=== PATIENT | female | born 1990 | race Caucasian/White ===

== ENCOUNTER 2017-06-22 13:22 | Inpatient (IN) | payer MEDICAID ==
[2017-06-22] MEDS ORDERED: Sodium Chloride 0.9% 2.5 ML Syringe FLUSH PRN ×2 (13:47→17:54)
[2017-06-22] MEDS ORDERED: Ketorolac 30 MG/ML SDV IVPUSH ONE (13:47)
[2017-06-22] MEDS ORDERED: Sodium Chloride 0.9% 1,000 ML IV ONE ×2 (13:47→17:37)
[2017-06-22] MEDS ORDERED: Ondansetron 4 MG/2 ML SDV IVPUSH ONE (13:47)
[2017-06-22] MEDS ORDERED: Sodium Chloride 0.9% 10 ML Syringe FLUSH PRN ×2 (13:47→17:54)
--- NOTE | 2017-06-22 14:09 | EDM.PDOC ---
ED HPI GENERAL MEDICAL PROBLEM - General Chief Complaint: Abdominal Pain Stated Complaint: ABD PAIN Time Seen by Provider: 06/22/17 13:42 Source of Information: Reports: Patient History Limitations: Reports: No Limitations - History of Present Illness INITIAL COMMENTS - FREE TEXT/NARRATIVE: History of present illness: []Patient developed severe lower abdominal pain after intercourse last night. She woke up today with worsening pain. Denies any fevers, chills, pain with urination, vaginal or urinary bleeding. Pain is worse right than left. Review of systems: As per history of present illness and below otherwise all systems reviewed and negative. Past medical history: As per history of present illness and as reviewed below otherwise noncontributory. Surgical history: As per history of present illness and as reviewed below otherwise noncontributory. Social history: No reported history of drug or alcohol abuse. Family history: As per history of present illness and as reviewed below otherwise noncontributory. Physical exam: General: Well developed, well nourished in NAD HEENT: Atraumatic, normocephalic, pupils reactive, negative for conjunctival pallor or scleral icterus, mucous membranes moist, throat clear, neck supple, nontender, trachea midline. Lungs: Clear to auscultation, breath sounds equal bilaterally, chest nontender. Heart: S1S2, regular, negative for clicks, rubs, or JVD. Abdomen: Soft, NABS, nondistended, severe tenderness throughout the whole abdomen with voluntary guarding, no rebound. Negative for masses or hepatosplenomegaly. Negative for costovertebral tenderness. Pelvis: Stable nontender. Genitourinary: Deferred. Rectal: Deferred. Extremities: Atraumatic, negative for cords or calf pain. Neurovascular unremarkable. Neuro: Awake, alert, oriented. Cranial nerves II through XII unremarkable. Cerebellum unremarkable. Motor and sensory unremarkable throughout. Exam nonfocal. Diagnostics: []CBC shows mild elevated white count and anemia, is negative. Pelvic ultrasound was ordered showing a complex mass, with free fluid in the pelvis. CT was then ordered showing a large cystic mass behind the uterus with blood in the paracolic gutters possibly representing a ruptured ovarian cyst. Therapeutics: []IV hydrated, pain control Impression: []Ruptured ovarian cyst with free fluid. was consulted and he evaluated patient in the ED. He preferred to admit this patient to the hospitalist with him on consult. Patient did have one hypotensive episode while in the ED to a systolic pressure in 70s without syncope. Plan: []Admit for serial H&H's to medicine with COMPUTER AIDED DRAFTER on consult Definitive disposition and diagnosis as appropriate pending reevaluation and review of above. Abdominal Pain Score (Numeric/FACES): 10 - Related Data Allergies Allergy/AdvReac Type Severity Reaction Status Date / Time cefaclor [From Ceclor] Allergy Hives Verified 06/22/17 13:33 hydromorphone [From Dilaudid] Allergy Swelling Verified 06/22/17 13:33 Penicillins Allergy Anaphylactic Verified 06/22/17 13:33 Shock sumatriptan [From Imitrex] Allergy Hives Verified 06/22/17 13:33 verapamil Allergy Hives Verified 06/22/17 13:33 Home Meds: Home Meds Omeprazole 20 mg PO DAILY 06/22/17 [History] Sertraline [Zoloft] 150 mg PO BEDTIME 06/22/17 [History] Topiramate [Topamax] 50 mg PO BID 06/22/17 [History] busPIRone [Buspar] 5 mg PO TID 06/22/17 [History] traZODone HCl [Trazodone HCl] 300 mg PO BEDTIME PRN 06/22/17 [History] Past Medical History 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: Other (See Below) Other OB/BYN History: Ovarian cysts with rupture Psychiatric History: Reports: Anxiety, Depression, Panic Attack, Other (See Below) Other Psychiatric History: Insomnia Hematologic History: Reports: Anemia Other Hematologic History: during Social & Family History - Family History Family Medical History: Noncontributory - Tobacco Use Smoking Status *Q: Never Smoker Second Hand Smoke Exposure: No - Caffeine Use Caffeine Use: Reports: Soda - Recreational Drug Use Recreational Drug Use: No ED ROS GENERAL - Review of Systems Review Of Systems: See Below (See history of present illness) ED EXAM, GI/ABD - Physical Exam Exam: See Below (See history of present illness) Course - Vital Signs Last Recorded V/S: Last Vital Signs Temp 36.9 C 06/23/17 04:00 Pulse 94 06/23/17 04:00 Resp 16 06/23/17 04:00 BP 92/59 L 06/23/17 04:00 Pulse Ox 98 06/23/17 04:00 - Orders/Labs/Meds Orders: Active Orders 24 hr Category Date Time Status Sodium Chloride 0.9% [Saline Flush] Med 06/22/17 13:47 Active 10 ml FLUSH ASDIRECTED PRN Sodium Chloride 0.9% [Saline Flush] Med 06/22/17 13:47 Active 2.5 ml FLUSH ASDIRECTED PRN Saline Lock Insert [OM.PC] Stat Oth 06/22/17 13:47 Ordered Medication Orders Sodium Chloride (Normal Saline) 1,000 mls @ 125 mls/hr IV ASDIRECTED SELINA Last Admin: 06/23/17 02:44 Dose: 125 mls/hr Infusion: 06/23/17 02:44 Dose: 125 mls/hr Admin: 06/22/17 18:51 Dose: 125 mls/hr Morphine Sulfate (Morphine) 2 mg IVPUSH Q2H PRN PRN Reason: Pain (severe 7-10) Stop: 06/23/17 18:19 Last Admin: 06/23/17 06:50 Dose: 2 mg Admin: 06/23/17 04:17 Dose: 2 mg Admin: 06/23/17 01:22 Dose: 2 mg Admin: 06/22/17 23:11 Dose: 2 mg Admin: 06/22/17 21:00 Dose: 2 mg Admin: 06/22/17 18:49 Dose: 2 mg Ondansetron HCl (Zofran) 4 mg IVPUSH Q4H PRN PRN Reason: Nausea/Vomiting Last Admin: 06/23/17 04:15 Dose: 4 mg Admin: 06/22/17 21:53 Dose: 4 mg Sodium Chloride (Saline Flush) 10 ml FLUSH ASDIRECTED PRN PRN Reason: Keep Vein Open Sodium Chloride (Saline Flush) 2.5 ml FLUSH ASDIRECTED PRN PRN Reason: Keep Vein Open Sodium Chloride (Saline Flush) 10 ml FLUSH ASDIRECTED PRN PRN Reason: Keep Vein Open Sodium Chloride (Saline Flush) 2.5 ml FLUSH ASDIRECTED PRN PRN Reason: Keep Vein Open Labs: Laboratory Tests 06/22/17 06/22/17 06/22/17 Range/Units 14:00 14:00 14:00 WBC 12.80 H (4.0-11.0) K/uL RBC 3.88 L (4.30-5.90) M/uL Hgb 10.5 L (12.0-16.0) g/dL Hct 32.8 L (36.0-46.0) % MCV 84.5 (80.0-98.0) fL MCH 27.1 (27.0-32.0) pg MCHC 32.0 (31.0-37.0) g/dL RDW Std Deviation 40.3 (28.0-62.0) fl RDW Coeff of Jyotsna 13 (11.0-15.0) % Plt Count 283 (150-400) K/uL MPV 11.00 (7.40-12.00) fL Neut % (Auto) 73.2 (48.0-80.0) % Lymph % (Auto) 19.5 (16.0-40.0) % Crane % (Auto) 6.0 (0.0-15.0) % Eos % (Auto) 1.1 (0.0-7.0) % Baso % (Auto) 0.2 (0.0-1.5) % Neut # (Auto) 9.4 H (1.4-5.7) K/uL Lymph # (Auto) 2.5 H (0.6-2.4) K/uL Crane # (Auto) 0.8 (0.0-0.8) K/uL Eos # (Auto) 0.1 (0.0-0.7) K/uL Baso # (Auto) 0.0 (0.0-0.1) K/uL Nucleated RBC % 0.0 /100WBC Nucleated RBCs # 0 K/uL Smear Path Review INR 0.92 (0.86-1.11) APTT (18.6-31.3) SEC Sodium 136 (136-146) mmol/L Potassium 3.8 (3.5-5.1) mmol/L Chloride 108 (98-110) mmol/L Carbon Dioxide 21 (21-31) mmol/L BUN 13 (6.0-23.0) mg/dL Creatinine 0.8 (0.6-1.5) mg/dL Est Cr Clr Drug Dosing 82.80 mL/min Estimated GFR (MDRD) > 60.0 ml/min Glucose 96 (60-110) mg/dL Calcium 8.6 L (8.8-10.8) mg/dL Total Bilirubin 0.3 (0.1-1.5) mg/dL AST 11 (5-40) IU/L ALT 14 (8-54) IU/L Alkaline Phosphatase 84 (40-150) Total Protein 6.8 (6.0-8.0) g/dL Albumin 3.7 (3.5-5.0) g/dL Globulin 3.1 (2.0-3.5) g/dL Albumin/Globulin Ratio 1.2 L (1.3-2.8) Urine Color Urine Appearance Urine pH (5.0-8.0) Ur Specific [place] (1.001-1.035) Urine Protein (NEGATIVE) mg/dL Urine Glucose (UA) (NEGATIVE) mg/dL Urine Ketones (NEGATIVE) mg/dL Urine Occult Blood (NEGATIVE) Urine Nitrite (NEGATIVE) Urine Bilirubin (NEGATIVE) Urine Urobilinogen (<2.0) EU/dL Ur Leukocyte Esterase (NEGATIVE) Urine RBC (0-2/HPF) Urine WBC (0-5/HPF) Ur Epithelial Cells (NONE-FEW) Amorphous Sediment (NEGATIVE) Urine Bacteria (NEGATIVE) Urine HCG, Qual (NEGATIVE) 06/22/17 06/22/17 06/22/17 Range/Units 14:01 14:01 16:00 WBC (4.0-11.0) K/uL RBC (4.30-5.90) M/uL Hgb (12.0-16.0) g/dL Hct (36.0-46.0) % MCV (80.0-98.0) fL MCH (27.0-32.0) pg MCHC (31.0-37.0) g/dL RDW Std Deviation (28.0-62.0) fl RDW Coeff of Jyotsna (11.0-15.0) % Plt Count (150-400) K/uL MPV (7.40-12.00) fL Neut % (Auto) (48.0-80.0) % Lymph % (Auto) (16.0-40.0) % Crane % (Auto) (0.0-15.0) % Eos % (Auto) (0.0-7.0) % Baso % (Auto) (0.0-1.5) % Neut # (Auto) (1.4-5.7) K/uL Lymph # (Auto) (0.6-2.4) K/uL Crane # (Auto) (0.0-0.8) K/uL Eos # (Auto) (0.0-0.7) K/uL Baso # (Auto) (0.0-0.1) K/uL Nucleated RBC % /100WBC Nucleated RBCs # K/uL Smear Path Review SENT TO PATHOLOGY INR (0.86-1.11) APTT (18.6-31.3) SEC Sodium (136-146) mmol/L Potassium (3.5-5.1) mmol/L Chloride (98-110) mmol/L Carbon Dioxide (21-31) mmol/L BUN (6.0-23.0) mg/dL Creatinine (0.6-1.5) mg/dL Est Cr Clr Drug Dosing mL/min Estimated GFR (MDRD) ml/min Glucose (60-110) mg/dL Calcium (8.8-10.8) mg/dL Total Bilirubin (0.1-1.5) mg/dL AST (5-40) IU/L ALT (8-54) IU/L Alkaline Phosphatase (40-150) Total Protein (6.0-8.0) g/dL Albumin (3.5-5.0) g/dL Globulin (2.0-3.5) g/dL Albumin/Globulin Ratio (1.3-2.8) Urine Color YELLOW Urine Appearance CLEAR Urine pH 6.5 (5.0-8.0) Ur Specific [place] 1.025 (1.001-1.035) Urine Protein TRACE (NEGATIVE) mg/dL Urine Glucose (UA) NEGATIVE (NEGATIVE) mg/dL Urine Ketones NEGATIVE (NEGATIVE) mg/dL Urine Occult Blood NEGATIVE (NEGATIVE) Urine Nitrite NEGATIVE (NEGATIVE) Urine Bilirubin NEGATIVE (NEGATIVE) Urine Urobilinogen 0.2 (<2.0) EU/dL Ur Leukocyte Esterase NEGATIVE (NEGATIVE) Urine RBC 0-1 (0-2/HPF) Urine WBC 0-2 (0-5/HPF) Ur Epithelial Cells MODERATE (NONE-FEW) Amorphous Sediment FEW (NEGATIVE) Urine Bacteria FEW (NEGATIVE) Urine HCG, Qual NEGATIVE (NEGATIVE) 06/22/17 Range/Units 16:00 WBC (4.0-11.0) K/uL RBC (4.30-5.90) M/uL Hgb (12.0-16.0) g/dL Hct (36.0-46.0) % MCV (80.0-98.0) fL MCH (27.0-32.0) pg MCHC (31.0-37.0) g/dL RDW Std Deviation (28.0-62.0) fl RDW Coeff of Jy[place]na (11.0-15.0) % Plt Count (150-400) K/uL MPV (7.40-12.00) fL Neut % (Auto) (48.0-80.0) % Lymph % (Auto) (16.0-40.0) % Crane % (Auto) (0.0-15.0) % Eos % (Auto) (0.0-7.0) % Baso % (Auto) (0.0-1.5) % Neut # (Auto) (1.4-5.7) K/uL Lymph # (Auto) (0.6-2.4) K/uL Crane # (Auto) (0.0-0.8) K/uL Eos # (Auto) (0.0-0.7) K/uL Baso # (Auto) (0.0-0.1) K/uL Nucleated RBC % /100WBC Nucleated RBCs # K/uL Smear Path Review INR (0.86-1.11) APTT 25.2 (18.6-31.3) SEC Sodium (136-146) mmol/L Potassium (3.5-5.1) mmol/L Chloride (98-110) mmol/L Carbon Dioxide (21-31) mmol/L BUN (6.0-23.0) mg/dL Creatinine (0.6-1.5) mg/dL Est Cr Clr Drug Dosing mL/min Estimated GFR (MDRD) ml/min Glucose (60-110) mg/dL Calcium (8.8-10.8) mg/dL Total Bilirubin (0.1-1.5) mg/dL AST (5-40) IU/L ALT (8-54) IU/L Alkaline Phosphatase (40-150) Total Protein (6.0-8.0) g/dL Albumin (3.5-5.0) g/dL Globulin (2.0-3.5) g/dL Albumin/Globulin Ratio (1.3-2.8) Urine Color Urine Appearance Urine pH (5.0-8.0) Ur Specific [place] (1.001-1.035) Urine Protein (NEGATIVE) mg/dL Urine Glucose (UA) (NEGATIVE) mg/dL Urine Ketones (NEGATIVE) mg/dL Urine Occult Blood (NEGATIVE) Urine Nitrite (NEGATIVE) Urine Bilirubin (NEGATIVE) Urine Urobilinogen (<2.0) EU/dL Ur Leukocyte Esterase (NEGATIVE) Urine RBC (0-2/HPF) Urine WBC (0-5/HPF) Ur Epithelial Cells (NONE-FEW) Amorphous Sediment (NEGATIVE) Urine Bacteria (NEGATIVE) Urine HCG, Qual (NEGATIVE) Meds: Medications Generic Name Dose Route Start Last Admin Trade Name Freq PRN Reason Stop Dose Admin Sodium Chloride 1,000 mls @ 125 mls/hr 06/22/17 18:00 06/23/17 02:44 Normal Saline IV 125 mls/hr ASDIRECTED SELINA Administration Morphine Sulfate 2 mg 06/22/17 17:54 06/23/17 06:50 Morphine IVPUSH 06/23/17 18:19 2 mg Q2H PRN Administration Pain (severe 7-10) Ondansetron HCl 4 mg 06/22/17 17:54 06/23/17 04:15 Zofran IVPUSH 4 mg Q4H PRN Administration Nausea/Vomiting Sodium Chloride 10 ml 06/22/17 13:47 Saline Flush FLUSH ASDIRECTED PRN Keep Vein Open Sodium Chloride 2.5 ml 06/22/17 13:47 Saline Flush FLUSH ASDIRECTED PRN Keep Vein Open Sodium Chloride 10 ml 06/22/17 17:54 Saline Flush FLUSH ASDIRECTED PRN Keep Vein Open Sodium Chloride 2.5 ml 06/22/17 17:54 Saline Flush FLUSH ASDIRECTED PRN Keep Vein Open Discontinued Medications Generic Name Dose Route Start Last Admin Trade Name Freq PRN Reason Stop Dose Admin Sodium Chloride 1,000 mls @ 999 mls/hr 06/22/17 13:47 06/22/17 14:05 Normal Saline IV 06/22/17 14:47 999 mls/hr .Bolus ONE Administration Sodium Chloride 1,000 mls @ 999 mls/hr 06/22/17 17:37 06/22/17 17:44 Normal Saline IV 06/22/17 18:37 999 mls/hr .Bolus ONE Administration Iopamidol 96 ml 06/22/17 15:55 06/22/17 16:02 Isovue Multipack-370 (76%) IVPUSH 06/22/17 15:56 96 ml ONETIME STA Administration Ketorolac Tromethamine 30 mg 06/22/17 13:47 06/22/17 14:02 Toradol IVPUSH 06/22/17 13:48 30 mg ONETIME ONE Administration Morphine Sulfate 4 mg 06/22/17 16:12 06/22/17 16:21 Morphine IVPUSH 06/22/17 16:13 4 mg ONETIME ONE Administration Ondansetron HCl 4 mg 06/22/17 13:47 06/22/17 14:02 Zofran IVPUSH 06/22/17 13:48 4 mg ONETIME ONE Administration Departure - Departure Time of Disposition: 07:15 Disposition: Home, Self-Care 01 Condition: Good Clinical Impression: Iron deficiency anemia Qualifiers: Iron deficiency anemia type: chronic blood loss Qualified Code(s): D50.0 - Iron deficiency anemia secondary to blood loss (chronic) - Discharge Information - My Orders Last 24 Hours: My Active Orders 06/22/17 13:47 Sodium Chloride 0.9% [Saline Flush] 10 ml FLUSH ASDIRECTED PRN Sodium Chloride 0.9% [Saline Flush] 2.5 ml FLUSH ASDIRECTED PRN Saline Lock Insert [OM.PC] Stat - Assessment/Plan Last 24 Hours: My Active Orders 06/22/17 13:47 Sodium Chloride 0.9% [Saline Flush] 10 ml FLUSH ASDIRECTED PRN Sodium Chloride 0.9% [Saline Flush] 2.5 ml FLUSH ASDIRECTED PRN Saline Lock Insert [OM.PC] Stat
[2017-06-22 14:38] LABS: CHLORIDE,CL 108 mmol/L (98-110); SODIUM,NA 136 mmol/L (136-146)
--- NOTE | 2017-06-22 15:43 | US ---
Pelvic non-OB sonogram/clinical history wire and endometrial ablation. Sudden onset x 12 h of lower abdominal pelvic pain after intercourse Multiple longitudinal and transverse sections demonstrate that the endometrial stripe is not thicken ed within the uterus. There is a complex right adnexal mass with cystic and solid components. Since room hCG determination is known to be normal this is not likely an ectopic gestation could represent a ruptured ovarian cyst with perirenal ovarian hematoma Impression: Complex right adnexal mass, sudden onset suggesting the likelihood this could be a hemor rhagic cyst
[2017-06-22] MEDS ORDERED: Iopamidol 755 MG/ML 500 ML Multipack Bottle IVPUSH STA (15:55)
[2017-06-22] MEDS ORDERED: Morphine 2 MG/ML Syringe IVPUSH ONE (16:12)
--- NOTE | 2017-06-22 16:15 | CT ---
CT scan of the abdomen and pelvis/clinical history sudden onset of pelvic pain after intercourse Multiple computed tomographic sections of the abdomen and pelvis were acquired with intravenous Isov ue 370/1 100 mL. Findings: The lung bases are clear. Liver spleen and pancreas and gallbladder are normal. There is a small amount of free intraperitoneal fluid dissecting caudad in the colic gutters bilaterally. The graft there is a cystic mass in the pelvis measuring approximately 5 cm behind the uterus surrounded by increased density material consistent with a large hematoma. Given that the patient's hCG determ ination is normal this is not likely a ruptured ectopic but may be a ruptured ovarian cyst area the uterus is of normal size and character. Impression: Cystic mass with large pelvic hematoma and free fluid dissecting in the paracolic gutter s. Given the patient is not by hCG determination, this likely represents a ruptured ovarian cyst
--- NOTE | 2017-06-22 18:33 | PCM.HP ---
H&P History of Present Illness - General Date of Service: 06/22/17 Admit Problem/Dx: Admission Diagnosis/Problem Admission Diagnosis/Problem Ruptured ovarian cyst - History of Present Illness Initial Comments - Free Text/Narative: 26-year-old female who is complaining of acute pelvic pain which started last night. Patient states that she was having intercourse and after about 15-20 minutes after intercourse she develops severe abdominal pain. She denies any blood from the vaginal canal. She states that along with severe abdominal pain she developed nausea and vomiting. She states that she vomited between 4-5 times overnight with the pain progressively getting worse being a 8 out of 10 in nature. She denies any fevers or chills during this episode. She states that she had shortness of breath secondary to the pain however she denies any heart palpitations or syncopal episodes. She does state that she did have a headache which she believes is migraine in nature as she does have a history of migraine headaches. She states she has significant past medical history of multiple gynecological problems including possible endometriosis, multiple miscarriages, possible fibroids, tubal ligation. He states this is the first set that she's had acute pelvic pain such as this. In the ER she was found to be hemodynamically stable with a mildly elevated WBC count, mild anemia 10.5, negative beta hCG for , a pelvic ultrasound which showed a complex mass with free fluid in the pelvis and a subsequent CT of the pelvis which showed a large cystic mass of the uterus with blood in the pericolic gutters which likely represented a ruptured ovarian cyst. Onset of Symptoms: Reports: Sudden Abdominal Pain Score (Numeric/FACES): 10 - Related Data Allergies/Adverse Reactions: Allergies Allergy/AdvReac Type Severity Reaction Status Date / Time cefaclor [From Ceclor] Allergy Hives Verified 06/22/17 13:33 hydromorphone [From Dilaudid] Allergy Swelling Verified 06/22/17 13:33 Penicillins Allergy Anaphylactic Verified 06/22/17 13:33 Shock sumatriptan [From Imitrex] Allergy Hives Verified 06/22/17 13:33 verapamil Allergy Hives Verified 06/22/17 13:33 Home Medications: Home Meds Omeprazole 20 mg PO DAILY 06/22/17 [History] Sertraline [Zoloft] 150 mg PO BEDTIME 06/22/17 [History] Topiramate [Topamax] 50 mg PO BID 06/22/17 [History] busPIRone [Buspar] 5 mg PO TID 06/22/17 [History] traZODone HCl [Trazodone HCl] 300 mg PO BEDTIME PRN 06/22/17 [History] Past Medical History STUDENT LIFE ADVISOR History: Reports: Endometriosis, Other (See Below) (Multiple miscarriages , tubal ligation) Other OB/BYN History: Ovarian cysts with rupture Psychiatric History: Reports: Anxiety, Depression, Panic Attack, Other (See Below) Other Psychiatric History: Insomnia Hematologic History: Reports: Anemia Other Hematologic History: during Social & Family History - Family History Family Medical History: Noncontributory - Tobacco Use Smoking Status *Q: Never Smoker Second Hand Smoke Exposure: No - Caffeine Use Caffeine Use: Reports: Soda - Recreational Drug Use Recreational Drug Use: No H&P Review of Systems - Review of Systems: Review Of Systems: ROS reveals no pertinent complaints other than HPI. Exam - Exam Exam: See Below - Vital Signs Vital Signs: Last Vital Signs Temp 36.4 C 06/22/17 17:35 Pulse 82 06/22/17 17:47 Resp 16 06/22/17 17:47 BP 100/53 L 06/22/17 17:47 Pulse Ox 98 06/22/17 17:47 Weight: 94.43 kg - Exam General: Alert HEENT: Conjunctiva Clear Neck: Supple, Trachea Midline Lungs: Clear to Auscultation, Normal Respiratory Effort Cardiovascular: Regular Rate, Regular Rhythm GI/Abdominal Exam: Guarding, Rigid, Rebound, Tender - Patient Data Result Diagrams: 06/22/17 14:00 06/22/17 14:00 *Q Meaningful Use (ADM) - VTE *Q VTE Criteria *Q: - Stroke *Q Stroke Criteria *Q: - AMI *Q AMI Criteria *Q: - Problem List (1) Ruptured ovarian cyst SNOMED Code(s): 03349557 ICD Code: N83.209 - UNSPECIFIED OVARIAN CYST, UNSPECIFIED SIDE Status: Acute Current Visit: Yes Problem List Initiated/Reviewed/Updated: Yes Orders Last 24hrs: Active Orders 24 hr Category Date Time Status Patient Status [ADT] Routine ADT 06/22/17 18:17 Ordered Antiembolic Devices [RC] PER UNIT ROUTINE Care 06/22/17 18:19 Ordered Notify Provider Consults [RC] ASDIRECTED Care 06/22/17 18:20 Ordered Oxygen Therapy [RC] PRN Care 06/22/17 18:17 Ordered Up With Assistance [RC] ASDIRECTED Care 06/22/17 17:54 Ordered VTE/DVT Education [RC] PER UNIT ROUTINE Care 06/22/17 18:17 Ordered Vital Signs [RC] Q4H Care 06/22/17 18:17 Ordered Consult to Physician [CONS] Routine Cons 06/22/17 17:54 Ordered Regular Diet [DIET] Diet 06/22/17 Breakfast Ordered BASIC METABOLIC PANEL,BMP [CHEM] AM Lab 06/23/17 05:11 Ordered CBC WITH AUTO DIFF [HEME] AM Lab 06/23/17 05:11 Ordered HEMOGLOBIN/HEMATOCRIT,HH [HEME] Q4H Lab 06/22/17 18:27 Ordered HEMOGLOBIN/HEMATOCRIT,HH [HEME] Q4H Lab 06/22/17 22:27 Ordered HEMOGLOBIN/HEMATOCRIT,HH [HEME] Q4H Lab 06/23/17 02:27 Ordered PERIPH BLOOD SMEAR PATHOLOGIST [HEME] Stat Lab 06/22/17 17:54 Ordered PTT,PARTIAL THROMBOPLSTIN TIME [COAG] Stat Lab 06/22/17 17:54 Ordered Morphine Med 06/22/17 17:54 Ordered 2 mg IVPUSH Q2H PRN Ondansetron [Zofran] Med 06/22/17 17:54 Ordered 4 mg IVPUSH Q4H PRN Sodium Chloride 0.9% @ 125 MLS/HR (1000ml) Med 06/22/17 18:00 Ordered Sodium Chloride 0.9% [Normal Saline] 1,000 ml IV ASDIRECTED Sodium Chloride 0.9% [Saline Flush] Med 06/22/17 17:54 Ordered 10 ml FLUSH ASDIRECTED PRN Sodium Chloride 0.9% [Saline Flush] Med 06/22/17 17:54 Ordered 2.5 ml FLUSH ASDIRECTED PRN Peripheral IV Insertion Adult [OM.PC] Routine Oth 06/22/17 17:54 Ordered Saline Lock Insert [OM.PC] Routine Oth 06/22/17 17:54 Ordered Sequential Compression Device [OM.PC] Per Unit Routine Oth 06/22/17 18:18 Ordered Resuscitation Status Routine Resus Stat 08/14/17 17:54 Ordered Medication Orders Sodium Chloride (Normal Saline) 1,000 mls @ 999 mls/hr IV .Bolus ONE Stop: 06/22/17 18:37 Last Admin: 06/22/17 17:44 Dose: 999 mls/hr Sodium Chloride (Normal Saline) 1,000 mls @ 125 mls/hr IV ASDIRECTED SELINA Morphine Sulfate (Morphine) 2 mg IVPUSH Q2H PRN PRN Reason: Pain (severe 7-10) Stop: 06/23/17 18:19 Ondansetron HCl (Zofran) 4 mg IVPUSH Q4H PRN PRN Reason: Nausea/Vomiting Sodium Chloride (Saline Flush) 10 ml FLUSH ASDIRECTED PRN PRN Reason: Keep Vein Open Sodium Chloride (Saline Flush) 2.5 ml FLUSH ASDIRECTED PRN PRN Reason: Keep Vein Open Sodium Chloride (Saline Flush) 10 ml FLUSH ASDIRECTED PRN PRN Reason: Keep Vein Open Sodium Chloride (Saline Flush) 2.5 ml FLUSH ASDIRECTED PRN PRN Reason: Keep Vein Open Assessment/Plan Comment:: Assessment and plan: #1. Acute severe abdominal/pelvic pain secondary to intercourse. Patient has a ruptured ovarian cyst based on CT imaging -Consult STUDENT LIFE ADVISOR -Trending H&H every 4 hours - Patient is allowed to eat, normal saline at 125 mL/h -If patient's hemoglobin drops or she becomes hemodynamically unstable than likely intervention will be blood transfusion -patient has been typed and screened -Coagulopathy panel pending -CBC, BMP in the a.m. -Patient on morphine when necessary every 2 hours for pain control, as well as Zofran every 4 hours for controlling of nausea and vomiting -Leukocytosis we'll continue to watch Patient admitted inpatient status greater than 2 midnights
[2017-06-22] MEDS: Morphine 10 MG/ML Syringe IVPUSH PRN ×3 (18:49→23:11)
[2017-06-22] MEDS: Sodium Chloride 0.9% 1,000 ML IV SCH (18:51)
[2017-06-22] MEDS: Ondansetron 4 MG/2 ML SDV IVPUSH PRN (21:53)
[2017-06-23] MEDS: Morphine 10 MG/ML Syringe IVPUSH PRN ×3 (01:22→06:50)
[2017-06-23] MEDS: Sodium Chloride 0.9% 1,000 ML IV SCH (02:44)
[2017-06-23] MEDS: Ondansetron 4 MG/2 ML SDV IVPUSH PRN ×4 (04:15→22:32)
[2017-06-23 07:31] LABS: CHLORIDE,CL 113 mmol/L (98-110); SODIUM,NA 138 mmol/L (136-146)
[2017-06-23] MEDS ORDERED: Morphine 2 MG/ML Syringe IVPUSH PRN (08:02)
--- NOTE | 2017-06-23 09:01 | PCM.PN ---
- General Info Date of Service: 06/23/17 Functional Status: Reports: Pain Controlled - Review of Systems General: Reports: No Symptoms HEENT: Reports: No Symptoms Pulmonary: Reports: No Symptoms Cardiovascular: Reports: No Symptoms Gastrointestinal: Reports: No Symptoms Genitourinary: Reports: No Symptoms Musculoskeletal: Reports: No Symptoms Skin: Reports: No Symptoms Neurological: Reports: No Symptoms Psychiatric: Reports: No Symptoms - Patient Data Vitals - Most Recent: Last Vital Signs Temp 36.4 C 06/23/17 08:00 Pulse 103 H 06/23/17 08:00 Resp 22 H 06/23/17 08:00 BP 99/62 06/23/17 08:00 Pulse Ox 96 06/23/17 08:00 Weight - Most Recent: 94.43 kg I&O - Last 24 Hours: Intake & Output 06/22/17 06/23/17 06/23/17 22:59 06:59 14:59 Intake Total 1700 Output Total 400 Balance 1300 Lab Results Last 24 Hours: Laboratory Results - last 24 hr 06/22/17 06/22/17 06/22/17 Range/Units 18:21 18:24 22:35 WBC (4.0-11.0) K/uL RBC (4.30-5.90) M/uL Hgb 9.2 L 9.5 L (12.0-16.0) g/dL Hct 28.4 L 28.5 L (36.0-46.0) % MCV (80.0-98.0) fL MCH (27.0-32.0) pg MCHC (31.0-37.0) g/dL RDW Std Deviation (28.0-62.0) fl RDW Coeff of [place] (11.0-15.0) % Plt Count (150-400) K/uL MPV (7.40-12.00) fL Neut % (Auto) (48.0-80.0) % Lymph % (Auto) (16.0-40.0) % [place] % (Auto) (0.0-15.0) % Eos % (Auto) (0.0-7.0) % Baso % (Auto) (0.0-1.5) % Neut # (Auto) (1.4-5.7) K/uL Lymph # (Auto) (0.6-2.4) K/uL [place] # (Auto) (0.0-0.8) K/uL Eos # (Auto) (0.0-0.7) K/uL Baso # (Auto) (0.0-0.1) K/uL Nucleated RBC % /100WBC Nucleated RBCs # K/uL Sodium (136-146) mmol/L Potassium (3.5-5.1) mmol/L Chloride (98-110) mmol/L Carbon Dioxide (21-31) mmol/L BUN (6.0-23.0) mg/dL Creatinine (0.6-1.5) mg/dL Est Cr Clr Drug Dosing mL/min Estimated GFR (MDRD) ml/min Glucose (60-110) mg/dL Calcium (8.8-10.8) mg/dL Blood Type B POSITIVE Antibody Screen NEGATIVE 06/23/17 06/23/17 06/23/17 Range/Units 02:35 06:38 06:38 WBC 8.82 (4.0-11.0) K/uL RBC 3.27 L (4.30-5.90) M/uL Hgb 9.3 L 8.9 L (12.0-16.0) g/dL Hct 28.7 L 28.1 L (36.0-46.0) % MCV 85.9 (80.0-98.0) fL MCH 27.2 (27.0-32.0) pg MCHC 31.7 (31.0-37.0) g/dL RDW Std Deviation 41.9 (28.0-62.0) fl RDW Coeff of [place] 13 (11.0-15.0) % Plt Count 212 (150-400) K/uL MPV 10.60 (7.40-12.00) fL Neut % (Auto) 64.3 (48.0-80.0) % Lymph % (Auto) 27.3 (16.0-40.0) % [place] % (Auto) 6.3 (0.0-15.0) % Eos % (Auto) 1.9 (0.0-7.0) % Baso % (Auto) 0.2 (0.0-1.5) % Neut # (Auto) 5.7 (1.4-5.7) K/uL Lymph # (Auto) 2.4 (0.6-2.4) K/uL [place] # (Auto) 0.6 (0.0-0.8) K/uL Eos # (Auto) 0.2 (0.0-0.7) K/uL Baso # (Auto) 0.0 (0.0-0.1) K/uL Nucleated RBC % 0.0 /100WBC Nucleated RBCs # 0 K/uL Sodium 138 (136-146) mmol/L Potassium 3.6 (3.5-5.1) mmol/L Chloride 113 H (98-110) mmol/L Carbon Dioxide 21 (21-31) mmol/L BUN 7 (6.0-23.0) mg/dL Creatinine 0.6 (0.6-1.5) mg/dL Est Cr Clr Drug Dosing 110.40 mL/min Estimated GFR (MDRD) > 60.0 ml/min Glucose 95 (60-110) mg/dL Calcium 7.7 L (8.8-10.8) mg/dL Blood Type Antibody Screen Med Orders - Current: Current Medications Morphine Sulfate (Morphine) 2 mg IVPUSH Q2H PRN PRN Reason: Pain (severe 7-10) Stop: 06/23/17 18:19 Ondansetron HCl (Zofran) 4 mg IVPUSH Q4H PRN PRN Reason: Nausea/Vomiting Last Admin: 06/23/17 04:15 Dose: 4 mg Sodium Chloride (Saline Flush) 10 ml FLUSH ASDIRECTED PRN PRN Reason: Keep Vein Open Sodium Chloride (Saline Flush) 2.5 ml FLUSH ASDIRECTED PRN PRN Reason: Keep Vein Open Sodium Chloride (Saline Flush) 10 ml FLUSH ASDIRECTED PRN PRN Reason: Keep Vein Open Sodium Chloride (Saline Flush) 2.5 ml FLUSH ASDIRECTED PRN PRN Reason: Keep Vein Open Discontinued Medications Sodium Chloride (Normal Saline) 1,000 mls @ 999 mls/hr IV .Bolus ONE Stop: 06/22/17 14:47 Last Admin: 06/22/17 14:05 Dose: 999 mls/hr Sodium Chloride (Normal Saline) 1,000 mls @ 999 mls/hr IV .Bolus ONE Stop: 06/22/17 18:37 Last Admin: 06/22/17 17:44 Dose: 999 mls/hr Sodium Chloride (Normal Saline) 1,000 mls @ 125 mls/hr IV ASDIRECTED SELINA Last Admin: 06/23/17 02:44 Dose: 125 mls/hr Iopamidol (Isovue Multipack-370 (76%)) 96 ml IVPUSH ONETIME STA Stop: 06/22/17 15:56 Last Admin: 06/22/17 16:02 Dose: 96 ml Ketorolac Tromethamine (Toradol) 30 mg IVPUSH ONETIME ONE Stop: 06/22/17 13:48 Last Admin: 06/22/17 14:02 Dose: 30 mg Morphine Sulfate (Morphine) 4 mg IVPUSH ONETIME ONE Stop: 06/22/17 16:13 Last Admin: 06/22/17 16:21 Dose: 4 mg Morphine Sulfate (Morphine) 2 mg IVPUSH Q2H PRN PRN Reason: Pain (severe 7-10) Stop: 06/23/17 18:19 Last Admin: 06/23/17 06:50 Dose: 2 mg Ondansetron HCl (Zofran) 4 mg IVPUSH ONETIME ONE Stop: 06/22/17 13:48 Last Admin: 06/22/17 14:02 Dose: 4 mg - Exam General: Alert, Oriented HEENT: Pupils Equal, Pupils Reactive, EOMI, Mucous Membr. Moist/[place] Neck: Supple Lungs: Clear to Auscultation, Normal Respiratory Effort Cardiovascular: Regular Rate, Regular Rhythm GI/Abdominal Exam: Normal Bowel Sounds, Soft, Non-Tender, No Organomegaly, No Distention, No Abnormal Bruit, No Mass, Pelvis Stable (Female) Exam: Normal External Exam, Normal Speculum Exam, Normal Bimanual Exam Back Exam: Normal Inspection, Full Range of Motion Extremities: Normal Inspection, Normal Range of Motion, Non-Tender, No Pedal Edema, Normal Capillary Refill Skin: Warm, Dry, Intact Wound/Incisions: Healing Well Neurological: No New Focal Deficit Psy/Mental Status: Alert, Normal Affect, Normal Mood - Problem List Review Problem List Initiated/Reviewed/Updated: Yes - Assessment Assessment:: Pelvic hematoma presumably due to rupture ovarian cyst currently the patient vital signs stable hair H&H is stabling around there 8.5 adequate urine output. Abdominal pain is diminished last night the patient ambulating without any problem' Plan to continue monitor H&H every 8 hour for the next 24 hour and planning to repeat his abdominal and pelvic CAT scan tomorrow if the patient continued to be well and her vital signs stable most likely will send her home in a.m. to be followed in the clinic later date. - Plan Plan:: Assessment and plan: #1. Acute severe abdominal/pelvic pain secondary to intercourse. 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 -Patient on morphine when necessary every 2 hours for pain control, as well as Zofran every 4 hours for controlling of nausea and vomiting -Leukocytosis we'll continue to watch Patient admitted inpatient status greater than 2 midnights
--- NOTE | 2017-06-23 09:08 | PCM.PN ---
- General Info Date of Service: 06/23/17 Admission Dx/Problem (Free Text): Admission Diagnosis/Problem Admission Diagnosis/Problem Ruptured ovarian cyst Subjective Update: Reporting pain 9/10 to abdomen this morning, but laying very comfortable appearing in bed. Reports not eating much since midnight, due to not feeling well. She has been up ambulating and urinating well. Denies chest pain or SOB. Functional Status: Reports: Ambulating, Urinating. Denies: Pain Controlled, Tolerating Diet - Review of Systems General: Reports: No Symptoms. Denies: Fever, Weakness HEENT: Reports: No Symptoms. Denies: Sore Throat Pulmonary: Reports: No Symptoms. Denies: Shortness of Breath, Cough, Sputum Cardiovascular: Reports: No Symptoms. Denies: Chest Pain, Edema Gastrointestinal: Reports: Abdominal Pain, Nausea Genitourinary: Reports: No Symptoms. Denies: Dysuria, Frequency, Burning Musculoskeletal: Reports: No Symptoms Skin: Reports: No Symptoms Neurological: Reports: No Symptoms Psychiatric: Reports: No Symptoms - Patient Data Vitals - Most Recent: Last Vital Signs Temp 97.5 F 06/23/17 08:00 Pulse 103 H 06/23/17 08:00 Resp 22 H 06/23/17 08:00 BP 99/62 06/23/17 08:00 Pulse Ox 96 06/23/17 08:00 Weight - Most Recent: 94.43 kg I&O - Last 24 Hours: Intake & Output 06/22/17 06/23/17 06/23/17 22:59 06:59 14:59 Intake Total 1700 Output Total 400 Balance 1300 Lab Results Last 24 Hours: Laboratory Results - last 24 hr 06/22/17 06/22/17 06/22/17 Range/Units 18:21 18:24 22:35 WBC (4.0-11.0) K/uL RBC (4.30-5.90) M/uL Hgb 9.2 L 9.5 L (12.0-16.0) g/dL Hct 28.4 L 28.5 L (36.0-46.0) % MCV (80.0-98.0) fL MCH (27.0-32.0) pg MCHC (31.0-37.0) g/dL RDW Std Deviation (28.0-62.0) fl RDW Coeff of Jyotsna (11.0-15.0) % Plt Count (150-400) K/uL MPV (7.40-12.00) fL Neut % (Auto) (48.0-80.0) % Lymph % (Auto) (16.0-40.0) % [place] % (Auto) (0.0-15.0) % Eos % (Auto) (0.0-7.0) % Baso % (Auto) (0.0-1.5) % Neut # (Auto) (1.4-5.7) K/uL Lymph # (Auto) (0.6-2.4) K/uL [place] # (Auto) (0.0-0.8) K/uL Eos # (Auto) (0.0-0.7) K/uL Baso # (Auto) (0.0-0.1) K/uL Nucleated RBC % /100WBC Nucleated RBCs # K/uL Sodium (136-146) mmol/L Potassium (3.5-5.1) mmol/L Chloride (98-110) mmol/L Carbon Dioxide (21-31) mmol/L BUN (6.0-23.0) mg/dL Creatinine (0.6-1.5) mg/dL Est Cr Clr Drug Dosing mL/min Estimated GFR (MDRD) ml/min Glucose (60-110) mg/dL Calcium (8.8-10.8) mg/dL Blood Type B POSITIVE Antibody Screen NEGATIVE 06/23/17 06/23/17 06/23/17 Range/Units 02:35 06:38 06:38 WBC 8.82 (4.0-11.0) K/uL RBC 3.27 L (4.30-5.90) M/uL Hgb 9.3 L 8.9 L (12.0-16.0) g/dL Hct 28.7 L 28.1 L (36.0-46.0) % MCV 85.9 (80.0-98.0) fL MCH 27.2 (27.0-32.0) pg MCHC 31.7 (31.0-37.0) g/dL RDW Std Deviation 41.9 (28.0-62.0) fl RDW Coeff of Jyotsna 13 (11.0-15.0) % Plt Count 212 (150-400) K/uL MPV 10.60 (7.40-12.00) fL Neut % (Auto) 64.3 (48.0-80.0) % Lymph % (Auto) 27.3 (16.0-40.0) % [place] % (Auto) 6.3 (0.0-15.0) % Eos % (Auto) 1.9 (0.0-7.0) % Baso % (Auto) 0.2 (0.0-1.5) % Neut # (Auto) 5.7 (1.4-5.7) K/uL Lymph # (Auto) 2.4 (0.6-2.4) K/uL [place] # (Auto) 0.6 (0.0-0.8) K/uL Eos # (Auto) 0.2 (0.0-0.7) K/uL Baso # (Auto) 0.0 (0.0-0.1) K/uL Nucleated RBC % 0.0 /100WBC Nucleated RBCs # 0 K/uL Sodium 138 (136-146) mmol/L Potassium 3.6 (3.5-5.1) mmol/L Chloride 113 H (98-110) mmol/L Carbon Dioxide 21 (21-31) mmol/L BUN 7 (6.0-23.0) mg/dL Creatinine 0.6 (0.6-1.5) mg/dL Est Cr Clr Drug Dosing 110.40 mL/min Estimated GFR (MDRD) > 60.0 ml/min Glucose 95 (60-110) mg/dL Calcium 7.7 L (8.8-10.8) mg/dL Blood Type Antibody Screen Med Orders - Current: Current Medications Morphine Sulfate (Morphine) 2 mg IVPUSH Q2H PRN PRN Reason: Pain (severe 7-10) Stop: 06/23/17 18:19 Last Admin: 06/23/17 09:01 Dose: 2 mg Ondansetron HCl (Zofran) 4 mg IVPUSH Q4H PRN PRN Reason: Nausea/Vomiting Last Admin: 06/23/17 09:01 Dose: 4 mg Sodium Chloride (Saline Flush) 10 ml FLUSH ASDIRECTED PRN PRN Reason: Keep Vein Open Sodium Chloride (Saline Flush) 2.5 ml FLUSH ASDIRECTED PRN PRN Reason: Keep Vein Open Sodium Chloride (Saline Flush) 10 ml FLUSH ASDIRECTED PRN PRN Reason: Keep Vein Open Sodium Chloride (Saline Flush) 2.5 ml FLUSH ASDIRECTED PRN PRN Reason: Keep Vein Open Discontinued Medications Sodium Chloride (Normal Saline) 1,000 mls @ 999 mls/hr IV .Bolus ONE Stop: 06/22/17 14:47 Last Admin: 06/22/17 14:05 Dose: 999 mls/hr Sodium Chloride (Normal Saline) 1,000 mls @ 999 mls/hr IV .Bolus ONE Stop: 06/22/17 18:37 Last Admin: 06/22/17 17:44 Dose: 999 mls/hr Sodium Chloride (Normal Saline) 1,000 mls @ 125 mls/hr IV ASDIRECTED SELINA Last Admin: 06/23/17 02:44 Dose: 125 mls/hr Iopamidol (Isovue Multipack-370 (76%)) 96 ml IVPUSH ONETIME STA Stop: 06/22/17 15:56 Last Admin: 06/22/17 16:02 Dose: 96 ml Ketorolac Tromethamine (Toradol) 30 mg IVPUSH ONETIME ONE Stop: 06/22/17 13:48 Last Admin: 06/22/17 14:02 Dose: 30 mg Morphine Sulfate (Morphine) 4 mg IVPUSH ONETIME ONE Stop: 06/22/17 16:13 Last Admin: 06/22/17 16:21 Dose: 4 mg Morphine Sulfate (Morphine) 2 mg IVPUSH Q2H PRN PRN Reason: Pain (severe 7-10) Stop: 06/23/17 18:19 Last Admin: 06/23/17 06:50 Dose: 2 mg Ondansetron HCl (Zofran) 4 mg IVPUSH ONETIME ONE Stop: 06/22/17 13:48 Last Admin: 06/22/17 14:02 Dose: 4 mg - Exam General: Alert, Oriented, Cooperative, No Acute Distress Lungs: Clear to Auscultation, Normal Respiratory Effort Cardiovascular: Regular Rate, Regular Rhythm GI/Abdominal Exam: Normal Bowel Sounds, Soft, Tender (diffuse tenderness) Extremities: Normal Inspection, Normal Range of Motion, Non-Tender, No Pedal Edema, Normal Capillary Refill Neurological: No New Focal Deficit Psy/Mental Status: Alert, Normal Affect, Normal Mood - Problem List & Annotations (1) Ruptured ovarian cyst SNOMED Code(s): 17066754 Code(s): N83.209 - UNSPECIFIED OVARIAN CYST, UNSPECIFIED SIDE Status: Acute Current Visit: Yes - Problem List Review Problem List Initiated/Reviewed/Updated: Yes - My Orders Last 24 Hours: My Active Orders 06/23/17 14:30 CBC WITH AUTO DIFF [HEME] Q8H 06/23/17 22:30 CBC WITH AUTO DIFF [HEME] Q8H 06/24/17 06:30 CBC WITH AUTO DIFF [HEME] Q8H 06/24/17 07:00 Abdomen Pelvis wo Cont [CT] Timed - Plan Plan:: This 26 year old female admitted with a ruptured ovarian cyst. 1. Ruptured ovarian cyst: Abdominal pain continues, will adjust pain medications and attempt PO pain medications. She is tolerating Morphine even with allergy to Dilaudid. Dr. Pollock consulted, will trend hgb Q8hr, remains stable, this morning 8.9. and repeat CT in am per Dr. Pollock's recommendations. She is able to eat, having some slight nausea. Will give 1 dose of Phenergan IM now and monitor. Leukocytosis improved. VTE prophylaxis: SCDs. Dispo: Possible DC in am if remains stable.
[2017-06-23] MEDS ORDERED: Promethazine 25 MG/ML SDV IM ONE (09:22)
--- NOTE | 2017-06-23 11:03 | CONS ---
DATE OF CONSULTATION: 06/22/2017 DATE OF : 1990 PRIMARY CARE PHYSICIAN: Jose PCP BRIEF HISTORY: She is 26-year-old patient. She is para 3-0-0-3, all of them vaginal deliveries. She is also status post tubal ligation and ablation in 2011. The patient recently relocated from [place], [place] to [place], [place]. There is no surgical history on her, and there is no significant medical problem on the patient. She stated her period after the operation is light; however, it is accompanied by cramps. Her problem started yesterday evening when she had intercourse with her fiance. After that, she felt a sudden onset of pelvic pain and abdominal pain and then the patient felt dizzy and nauseated and she vomited. She lay down, and she stated her condition is improved a little bit; however, she has continued to have the pain and dizziness. She has come to the emergency room for evaluation, and for the purpose of this consultation, I reviewed her lab work and I reviewed the CAT scan of the patient. Reviewing the lab work shows that her test is negative. Her hematocrit is reasonable and stable, and the CAT scan shows large pelvic hematoma of unknown origin at this time. Whether it is arising from ruptured ovarian cyst or from rupture of the uterus, it is unknown. Per examination, the patient is oriented to time and place. Her vital signs essentially were normal. Her examination of the lower abdomen shows abdomen is soft, mild tenderness and rebound tenderness in the lower part of the pelvis but there is nothing out of the ordinary. Bowel sounds were present. Pelvic examination revealed external vulva is normal. Vagina is normal without any blood. Cervix is without any lesion, and there is no blood coming from the cervical os. Bimanual examination is tender and very difficult to evaluate, but there is a possibility of about 15 to 16 week size pelvic mass. ASSESSMENT: Pelvic bleeding and pelvic hematoma after intercourse at this time of unknown etiology. PLAN: My plan is to admit her to the hospitalist service for observation tonight. We will do serial hematocrit every 4 hours. We will check her clotting study to make sure that there is no clotting abnormality, and if hematocrit is stable, then we will not transfuse her, but if she needs blood transfusion, then we will probably transfuse the patient as it is needed. I think the last option would be a surgical option at this time, if the patient continues to bleed and her vital signs continue to deteriorate. Otherwise, conservative approach and conservative management are the preferred method of management for this patient, and she may need to have surgery at later date. GEORGE / THIAGO /[id number]
[2017-06-23] MEDS: Acetaminophen/HYDROcodone 325-5 MG Tab PO PRN ×2 (11:44→20:36)
[2017-06-23] MEDS: Morphine 4 MG/ML Syringe IVPUSH PRN ×3 (15:26→22:23)
[2017-06-24] MEDS: Acetaminophen/HYDROcodone 325-5 MG Tab PO PRN ×2 (01:29→10:04)
[2017-06-24] MEDS: Morphine 4 MG/ML Syringe IVPUSH PRN ×3 (02:25→06:52)
[2017-06-24] MEDS: Ondansetron 4 MG/2 ML SDV IVPUSH PRN ×2 (02:32→06:30)
[2017-06-24 08:26] VITALS: BP 103/57
--- NOTE | 2017-06-24 09:11 | PCM.DCSUM1 ---
Discharge Summary - Hospital Course Brief History: This 26 year old female with pmh of anxiety, depression, panic attacks, and hx of ovarian cysts presented with complaints of acute pelvic pain which started the night prior to admission. Patient states that she was having intercourse and 15-20 minutes after intercourse she developed severe abdominal pain. She denied any blood from the vaginal canal. She stated that along with severe abdominal pain she developed nausea and vomiting. She states that she vomited between 4-5 times overnight with the pain progressively getting worse being a 8 out of 10. She denied any fevers or chills during this episode. She states that she had shortness of breath secondary to the pain however she denies any heart palpitations or syncopal episodes. She reported that she did have a headache which she believes is migraine in nature as she does have a history of migraine headaches. She states she has significant past medical history of multiple gynecological problems including possible endometriosis, multiple miscarriages, possible fibroids, tubal ligation. In the ER she was found to be hemodynamically stable with a mildly elevated WBC count, mild anemia 10.5, negative beta hCG for , a pelvic ultrasound which showed a complex mass with free fluid in the pelvis and a subsequent CT of the pelvis which showed a large cystic mass of the uterus with blood in the pericolic gutters which likely represented a ruptured ovarian cyst. Dr. Pollock was consulted and admission was recommended to trend hgb. She was admitted for ruptured ovarian cyst and pain control. - Discharge Data Discharge Date: 06/24/17 Discharge Disposition: Home, Self-Care 01 Condition: Good - Discharge Diagnosis/Problem(s) (1) Ruptured ovarian cyst SNOMED Code(s): 90588552 ICD Code: N83.209 - UNSPECIFIED OVARIAN CYST, UNSPECIFIED SIDE Status: Acute Current Visit: Yes - Patient Summary/Data Consults: Consultations 06/22/17 17:54 Consult to Physician [CONS] Routine - Patient Instructions Diet: Usual Diet as Tolerated Activity: No Strenuous Activities Driving: Do Not Drive (No driving when taking narcotics) Showering/Bathing: May Shower Notify Provider of: Fever, Increased Pain, Swelling and Redness, Drainage, Nausea and/or Vomiting - Discharge Plan Prescriptions/Med Rec: Acetaminophen/HYDROcodone [[place] 325-10 MG] 1 tab PO Q4H PRN #20 tablet PRN Reason: Pain Promethazine [Phenergan] 12.5 mg PO Q6H PRN #5 tablet PRN Reason: Nausea Home Medications: Home Meds Omeprazole 20 mg PO DAILY 06/22/17 [History] Sertraline [Zoloft] 150 mg PO BEDTIME 06/22/17 [History] Topiramate [Topamax] 50 mg PO BID 06/22/17 [History] busPIRone [Buspar] 5 mg PO TID 06/22/17 [History] traZODone HCl [Trazodone HCl] 300 mg PO BEDTIME PRN 06/22/17 [History] Acetaminophen/HYDROcodone [[place] 325-10 MG] 1 tab PO Q4H PRN #20 tablet [Rx] Promethazine [Phenergan] 12.5 mg PO Q6H PRN #5 tablet 06/24/17 [Rx] Patient Handouts: Acetaminophen; Hydrocodone tablets or capsules, Promethazine tablets, Ovarian Cyst, [id number] Referrals: Rafael Pollock MD [Physician] - 07/03/17 10:45 am (this week or early next week) - Discharge Summary/Plan Comment DC Time >30 min.: No Discharge Summary/Plan Comment: Discharge Diagnoses: Ruptured ovarian cyst- hgb stable nausea-improving Anxiety Depression Panic attacks Pinky was monitored and hgb trended. These remained stable and today it is 9.4. She continues to have some pain and nausea which is helped and tolerable with Edgecomb and phenergan. Dr. Pollock saw and ok'd her for discharge today. He will follow with her as outpatient and discuss further treatment plans and CT results. I will send her home with Edgecomb 10/325 1 tab by mouth every 4 hours as needed for pain #20 tabs no RF. I will also send Phenergan 12.5 mg PO every 8 hrs as needed for nausea #5 tabs. Follow up as scheduled with Dr Pollock and to return to ED or clinic if concerns should arise. - General Info Date of Service: 06/24/17 Admission Dx/Problem (Free Text: Admission Diagnosis/Problem Admission Diagnosis/Problem Ruptured ovarian cyst Subjective Update: Doing well Functional Status: Reports: Pain Controlled, Tolerating Diet, Ambulating, Urinating - Review of Systems General: Reports: No Symptoms. Denies: Fever HEENT: Reports: No Symptoms. Denies: Sinus Congestion Pulmonary: Reports: No Symptoms. Denies: Shortness of Breath, Cough, Sputum Cardiovascular: Reports: No Symptoms. Denies: Chest Pain, Palpitations, Edema Gastrointestinal: Reports: Abdominal Pain (tenderness to palpation and diffusely ), Nausea. Denies: Vomiting Musculoskeletal: Reports: No Symptoms Skin: Reports: No Symptoms Neurological: Reports: No Symptoms Psychiatric: Reports: No Symptoms - Patient Data Vitals - Most Recent: Last Vital Signs Temp 98.5 F 06/24/17 08:00 Pulse 74 06/24/17 08:00 Resp 20 06/24/17 08:00 BP 103/57 L 06/24/17 08:00 Pulse Ox 94 L 06/24/17 08:00 Weight - Most Recent: 94.43 kg I&O - Last 24 hours: Intake & Output 06/23/17 06/24/17 06/24/17 22:59 06:59 14:59 Intake Total 1200 760 Output Total 1230 1150 Balance -30 -390 Lab Results - Last 24 hrs: Laboratory Results - last 24 hr 06/23/17 06/23/17 06/24/17 Range/Units 14:58 22:45 06:30 WBC 9.21 9.37 10.07 (4.0-11.0) K/uL RBC 3.38 L 3.28 L 3.32 L (4.30-5.90) M/uL Hgb 9.3 L 9.3 L 9.4 L (12.0-16.0) g/dL Hct 29.0 L 28.7 L 29.3 L (36.0-46.0) % MCV 85.8 87.5 88.3 (80.0-98.0) fL MCH 27.5 28.4 28.3 (27.0-32.0) pg MCHC 32.1 32.4 32.1 (31.0-37.0) g/dL RDW Std Deviation 42.0 40.0 40.1 (28.0-62.0) fl RDW Coeff of Jyotsna 14 13 13 (11.0-15.0) % Plt Count 226 235 246 (150-400) K/uL MPV 10.90 11.30 11.40 (7.40-12.00) fL Neut % (Auto) 70.0 55.5 56.8 (48.0-80.0) % Lymph % (Auto) 22.8 34.4 32.9 (16.0-40.0) % [place] % (Auto) 5.2 7.0 6.7 (0.0-15.0) % Eos % (Auto) 1.8 2.7 3.1 (0.0-7.0) % Baso % (Auto) 0.2 0.4 0.5 (0.0-1.5) % Neut # (Auto) 6.4 H 5.2 5.7 (1.4-5.7) K/uL Lymph # (Auto) 2.1 3.2 H 3.3 H (0.6-2.4) K/uL [place] # (Auto) 0.5 0.7 0.7 (0.0-0.8) K/uL Eos # (Auto) 0.2 0.3 0.3 (0.0-0.7) K/uL Baso # (Auto) 0.0 0.0 0.1 (0.0-0.1) K/uL Nucleated RBC % 0.0 /100WBC Nucleated RBCs # 0 K/uL Med Orders - Current: Current Medications Hydrocodone Bitart/Acetaminophen ([place] 325-5 Mg) 1 - 2 tab PO Q4H PRN PRN Reason: Pain Last Admin: 06/24/17 01:29 Dose: 2 tab Morphine Sulfate (Morphine) 4 mg IVPUSH Q2H PRN PRN Reason: Pain (severe 7-10) Last Admin: 06/24/17 06:52 Dose: 4 mg Ondansetron HCl (Zofran) 4 mg IVPUSH Q4H PRN PRN Reason: Nausea/Vomiting Last Admin: 06/24/17 06:30 Dose: 4 mg Sodium Chloride (Saline Flush) 10 ml FLUSH ASDIRECTED PRN PRN Reason: Keep Vein Open Sodium Chloride (Saline Flush) 2.5 ml FLUSH ASDIRECTED PRN PRN Reason: Keep Vein Open Discontinued Medications Sodium Chloride (Normal Saline) 1,000 mls @ 999 mls/hr IV .Bolus ONE Stop: 06/22/17 14:47 Last Admin: 06/22/17 14:05 Dose: 999 mls/hr Sodium Chloride (Normal Saline) 1,000 mls @ 999 mls/hr IV .Bolus ONE Stop: 06/22/17 18:37 Last Admin: 06/22/17 17:44 Dose: 999 mls/hr Sodium Chloride (Normal Saline) 1,000 mls @ 125 mls/hr IV ASDIRECTED SELINA Last Admin: 06/23/17 02:44 Dose: 125 mls/hr Iopamidol (Isovue Multipack-370 (76%)) 96 ml IVPUSH ONETIME STA Stop: 06/22/17 15:56 Last Admin: 06/22/17 16:02 Dose: 96 ml Ketorolac Tromethamine (Toradol) 30 mg IVPUSH ONETIME ONE Stop: 06/22/17 13:48 Last Admin: 06/22/17 14:02 Dose: 30 mg Morphine Sulfate (Morphine) 4 mg IVPUSH ONETIME ONE Stop: 06/22/17 16:13 Last Admin: 06/22/17 16:21 Dose: 4 mg Morphine Sulfate (Morphine) 2 mg IVPUSH Q2H PRN PRN Reason: Pain (severe 7-10) Stop: 06/23/17 18:19 Last Admin: 06/23/17 06:50 Dose: 2 mg Morphine Sulfate (Morphine) 2 mg IVPUSH Q2H PRN PRN Reason: Pain (severe 7-10) Stop: 06/23/17 18:19 Last Admin: 06/23/17 09:01 Dose: 2 mg Ondansetron HCl (Zofran) 4 mg IVPUSH ONETIME ONE Stop: 06/22/17 13:48 Last Admin: 06/22/17 14:02 Dose: 4 mg Promethazine HCl (Phenergan) 25 mg IM ONETIME ONE Stop: 06/23/17 09:23 Last Admin: 06/23/17 10:25 Dose: 25 mg Sodium Chloride (Saline Flush) 10 ml FLUSH ASDIRECTED PRN PRN Reason: Keep Vein Open Sodium Chloride (Saline Flush) 2.5 ml FLUSH ASDIRECTED PRN PRN Reason: Keep Vein Open - Exam General: Reports: Alert, Oriented, Cooperative, No Acute Distress Lungs: Reports: Clear to Auscultation, Normal Respiratory Effort Cardiovascular: Reports: Regular Rate, Regular Rhythm GI/Abdominal Exam: Normal Bowel Sounds, Soft, No Distention, No Mass, Tender ( diffuse, but improving.) Neurological: Reports: No New Focal Deficit Psy/Mental Status: Reports: Alert, Normal Affect, Normal Mood *Q Meaningful Use (DIS) - VTE *Q VTE Criteria *Q: - Stroke *Q Stroke Criteria *Q: - AMI *Q AMI Criteria *Q:
[2017-06-24] MEDS ORDERED: Promethazine 25 MG Tab PO ONE (09:30)
--- NOTE | 2017-06-24 13:38 | CT ---
EXAM DATE: 06/22/17 PATIENT'S AGE: 26 Patient: JESSICA DC Facility: [place], [place] Site . Site : [id number] Study: CT Abdomen/Pelvis [id number]/16/2017 6:24:43 AM Ordering Physician: Johnny Belle Final Report: INDICATION: Follow up ovarian cyst with pelvic hemorrhage. Technique: CT scan of the abdomen pelvis. No intravenous contrast. Comparison: 06/22/2017. Findings: Hyper attenuating blood/fluid in the pelvis shows little change. The cystic region in the pelvis is slightly increased in overall size measuring 5.9 centimeters previously 4.5 centimeters. No change in liver, spleen, pancreas, adrenal glands or kidneys. Two small nonobstructing right ureteral calculi. Some sludge is present in the gallbladder. No calcified stones. Trace pleural effusions at the lung bases. IMPRESSION: Persistent hemorrhage in the pelvis surrounding a possible ovarian or adnexal cyst. Pelvic hemorrhage shows little change. The cyst appears slightly larger. Ultrasound can be considered for correlation. Small nonobstructing right renal calculi measuring less than 5 millimeters. No hydronephrosis. Please note that all CT scans at this facility use dose modulation, iterative reconstruction, and/or weight-based dosing when appropriate to reduce radiation dose to as low as reasonably achievable. Dictated by Jim Nassar MD @ Jun 24 2017 6:51AM (Electronic Signature) Report Signed by Proxy. HOLLY
== END 2017-06-24 10:15 | disposition home or self-care (01) | DRG 761 ==
LOC: MW.ED 13:22 → MW.MS 17:44 → OBSVTOIN 17:44 → MW.MS 18:08
PROVIDERS: ADMIT Internal Medicine; ATTEND Internal Medicine
DX: N83.209 Unspecified ovarian cyst, unspecified side (principal); R51 Headache; D50.0 Iron deficiency anemia secondary to blood loss (chronic); F41.8 Other specified anxiety disorders; Z88.0 Allergy status to penicillin; Z88.8 Allergy status to other drugs, medicaments and biological substances; Z79.899 Other long term (current) drug therapy
CPT/HCPCS: 36415; 74177; 76856; 80053; 81001; 81025; 85025; 85610; 85730; 88104; 96361; 96374; 96375; 99285; J1885; J2270; J2405; J7040; Q9967; 74176; 74176-26; 80048; 85014; 85018; 86850; 86900; 86901; 99284; A9270-GY; J2550

== ENCOUNTER 2017-07-09 07:24 | Day surgery (SDC) | payer MEDICAID ==
[~2017-07-09 07:24] MED LIST: Lactated Ringers 1,000 ML IV SCH; Lidocaine 2% 5 ML SDV ONE; Midazolam 1 MG/ML 2 ML SDV ONE; Ondansetron 4 MG/2 ML SDV ONE; Propofol 200 MG/20 ML SDV ONE; Rocuronium 10 MG/ML 10 ML Syringe ONE; Sodium Chloride 0.9% 10 ML Syringe FLUSH PRN; Sodium Chloride 0.9% 2.5 ML Syringe FLUSH PRN; ceFAZolin 2 GM in Premix Bag 1 BAG IV ONE; fentaNYL 100 MCG/2 ML SDV ONE
[2017-07-09] MEDS ORDERED: Scopolamine 1.5 MG Transdermal Patch TRDERM PRN (08:11)
--- NOTE | 2017-07-09 08:11 | PCM.PREANE ---
Preanesthetic Assessment - Anesthesia/Transfusion/Family Hx Anesthesia History: Prior Anesthesia Reaction Type of Anesthesia Reaction: Excessive Nausea/Vomiting Family History of Anesthesia Reaction: No Transfusion History: No Prior Transfusion(s) Intubation History: Unknown - Review of Systems General: No Symptoms Pulmonary: No Symptoms Cardiovascular: No Symptoms Gastrointestinal: No Symptoms Neurological: No Symptoms Other: Reports: None - Physical Assessment O2 Sat by Pulse Oximetry: 98 Respiratory Rate: 16 Vital Signs: Last Vital Signs Temp 36.2 C 07/09/17 07:46 Pulse 86 07/09/17 07:46 Resp 16 07/09/17 07:46 BP 112/71 07/09/17 07:46 Pulse Ox 98 07/09/17 07:46 Height: 1.57 m Weight: 94.801 kg ASA Class: 2 Mental Status: Alert & Oriented x3 Airway Class: Mallampati = 2 Dentition: Reports: Normal Dentition Thyro-Mental Finger Breadths: 3 Mouth Opening Finger Breadths: 3 ROM/Head Extension: Full Lungs: Clear to Auscultation, Normal Respiratory Effort Cardiovascular: Regular Rate, Regular Rhythm - Allergies Allergies/Adverse Reactions: Allergies Allergy/AdvReac Type Severity Reaction Status Date / Time cefaclor [From Ceclor] Allergy Hives Verified 06/22/17 13:33 hydromorphone [From Dilaudid] Allergy Swelling Verified 06/22/17 13:33 Penicillins Allergy Anaphylactic Verified 06/22/17 13:33 Shock sumatriptan [From Imitrex] Allergy Hives Verified 06/22/17 13:33 verapamil Allergy Hives Verified 06/22/17 13:33 - Blood Blood Available: No - Anesthesia Plan Pre-Op Medication Ordered: None - Acknowledgements Anesthesia Type Planned: General Anesthesia Pt an Appropriate Candidate for the Planned Anesthesia: Yes Alternatives and Risks of Anesthesia Discussed w Pt/Guardian: Yes Pt/Guardian Understands and Agrees with Anesthesia Plan: Yes PreAnesthesia Questionnaire HEENT History: Reports: None Other HEENT History: wears glasses Cardiovascular History: Reports: Arrhythmia Other Cardiovascular History: SVT, one four years ago was sustained for few hours Respiratory History: Reports: Asthma Other Respiratory History: very mild, rarely uses inhaler Gastrointestinal History: Reports: GERD Genitourinary History: Reports: Renal Calculus POLITICAL SCIENTIST History: Reports: Other (See Below) Other OB/BYN History: PCOS, Ovarian cysts with rupture and hemorrhage 2 weeks ago Musculoskeletal History: Reports: Back Pain, Chronic Other Musculoskeletal History: Buldging disk L4 and L5 Neurological History: Reports: Migraines, Other (See Below) Other Neuro History: hx of restless leg syndrome, has bulging disc at L4-L5 Psychiatric History: Reports: Anxiety, Depression Other Psychiatric History: Insomnia Endocrine/Metabolic History: Reports: Obesity/BMI 30+ Hematologic History: Reports: Anemia Other Hematologic History: during Immunologic History: Reports: None Oncologic (Cancer) History: Reports: None - Infectious Disease History Infectious Disease History: Reports: Chicken Pox - Past Surgical History HEENT Surgical History: Reports: Eye Surgery, Oral Surgery Other HEENT Surgeries/Procedures: wisdom teeth, 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) Cardiovascular Surgical History: Reports: Cardiac Ablation Respiratory Surgical History: Reports: None GI Surgical History: Reports: None Female Surgical History: Reports: Tubal Ligation Endocrine Surgical History: Reports: None Neurological Surgical History: Reports: None Musculoskeletal Surgical History: Reports: None Oncologic Surgical History: Reports: None Dermatological Surgical History: Reports: None - SUBSTANCE USE Smoking Status *Q: Never Smoker Tobacco Use Within Last Twelve Months: No Second Hand Smoke Exposure: No Recreational Drug Use History: No - HOME MEDS Home Medications: Home Meds Omeprazole 40 mg PO DAILY 06/22/17 [History] Sertraline [Zoloft] 150 mg PO BEDTIME 06/22/17 [History] Topiramate [Topamax] 25 mg PO BID 06/22/17 [History] busPIRone [Buspar] 25 mg PO BID 06/22/17 [History] traZODone HCl [Trazodone HCl] 300 mg PO BEDTIME PRN 06/22/17 [History] Albuterol [IJD: Albuterol HFA] 1 puff INH ASDIRECTED PRN 07/08/17 [History] - CURRENT (IN HOUSE) MEDS Current Meds: Current Medications Lactated Ringer's (Ringers, Lactated) 1,000 mls @ 125 mls/hr IV ASDIRECTED SELINA Last Admin: 07/09/17 07:40 Dose: 125 mls/hr Sodium Chloride (Saline Flush) 10 ml FLUSH ASDIRECTED PRN PRN Reason: Keep Vein Open Sodium Chloride (Saline Flush) 2.5 ml FLUSH ASDIRECTED PRN PRN Reason: Keep Vein Open Discontinued Medications Fentanyl (Sublimaze) Confirm Administered Dose 100 mcg .ROUTE .STK-MED ONE Stop: 07/09/17 07:21 Cefazolin Sodium/Dextrose 2 gm (/ Premix) 50 mls @ 100 mls/hr IV ONETIME ONE Stop: 07/08/17 12:03 Lidocaine (Xylocaine-Mpf 2%) Confirm Administered Dose 5 ml .ROUTE .STK-MED ONE Stop: 07/09/17 07:21 Midazolam HCl (Versed 1 Mg/Ml) Confirm Administered Dose 2 mg .ROUTE .STK-MED ONE Stop: 07/09/17 07:21 Ondansetron HCl (Zofran) Confirm Administered Dose 4 mg .ROUTE .STK-MED ONE Stop: 07/09/17 07:21 Propofol (Diprivan 20 Ml) Confirm Administered Dose 200 mg .ROUTE .STK-MED ONE Stop: 07/09/17 07:21 Rocuronium [place] (Zemuron) Confirm Administered Dose 100 mg .ROUTE .STK-MED ONE Stop: 07/09/17 07:21
[2017-07-09 09:17] LABS: CHLORIDE,CL 110 mmol/L (98-110); SODIUM,NA 139 mmol/L (136-146)
[2017-07-09] MEDS ORDERED: Dexamethasone 4 MG/ML 5 ML MDV ONE (09:26)
[2017-07-09] MEDS ORDERED: fentaNYL 100 MCG/2 ML SDV ONE ×4 (09:26→10:25)
[2017-07-09] MEDS ORDERED: Octyl 2-Cyanoacrylate 1 Tube ONE (10:13)
[2017-07-09] MEDS ORDERED: Promethazine 12.5 MG Supp RECTAL PRN (10:14)
[2017-07-09] MEDS ORDERED: Neostigmine Methylsulfate 1 MG/ML 5 ML Syringe ONE (10:23)
[2017-07-09] MEDS ORDERED: Sodium Chloride 0.9% 2.5 ML Syringe FLUSH PRN (10:28)
[2017-07-09] MEDS ORDERED: Ketorolac 30 MG/ML SDV ONE (10:28)
[2017-07-09] MEDS ORDERED: Sodium Chloride 0.9% 10 ML Syringe FLUSH PRN (10:28)
--- NOTE | 2017-07-09 10:33 | PCM.OPNOTE ---
- General Post-Op/Procedure Note Date of Surgery/Procedure: 07/09/17 Operative Procedure(s): Dignostic Laparoscopy, RSO Pre Op Diagnosis: ovarian cyst, pelvic pain Post-Op Diagnosis: Same Anesthesia Technique: General ET Tube Primary Surgeon: Rafael Pollock Environmental Maintenance Worker: Kristine Adams Environmental Maintenance Worker: Jimmy Redman EBL in mLs: 50 Complications: None Condition: Good
--- NOTE | 2017-07-09 10:34 | PCM.DCSUM1 ---
Discharge Summary - Discharge Data Discharge Date: 07/09/17 Discharge Disposition: Home, Self-Care 01 Condition: Good - Patient Summary/Data Operative Procedure(s) Performed: Dignostic Laparoscopy, RSO - Patient Instructions Diet: Usual Diet as Tolerated Activity: As Tolerated Driving: Do Not Drive Showering/Bathing: May Shower Wound/Incision Care: Keep Operative Site/Wound Site Clean and Dry Notify Provider of: Fever, Increased Pain, Nausea and/or Vomiting - Discharge Plan Home Medications: Home Meds Omeprazole 40 mg PO DAILY 06/22/17 [History] Sertraline [Zoloft] 150 mg PO BEDTIME 06/22/17 [History] Topiramate [Topamax] 25 mg PO BID 06/22/17 [History] busPIRone [Buspar] 25 mg PO BID 06/22/17 [History] traZODone HCl [Trazodone HCl] 300 mg PO BEDTIME PRN 06/22/17 [History] Albuterol [IJD: Albuterol HFA] 1 puff INH ASDIRECTED PRN 07/08/17 [History] - General Info Date of Service: 07/09/17 Functional Status: Reports: Pain Controlled - Review of Systems General: Reports: No Symptoms HEENT: Reports: No Symptoms Pulmonary: Reports: No Symptoms Cardiovascular: Reports: No Symptoms Gastrointestinal: Reports: No Symptoms Genitourinary: Reports: No Symptoms Musculoskeletal: Reports: No Symptoms Skin: Reports: No Symptoms Neurological: Reports: No Symptoms Psychiatric: Reports: No Symptoms - Patient Data Vitals - Most Recent: Last Vital Signs Temp 36.2 C 07/09/17 07:46 Pulse 86 07/09/17 07:46 Resp 16 07/09/17 08:11 BP 112/71 07/09/17 07:46 Pulse Ox 98 07/09/17 08:11 Weight - Most Recent: 94.801 kg Lab Results - Last 24 hrs: Laboratory Results - last 24 hr 07/09/17 07/09/17 07/09/17 Range/Units 08:20 08:20 08:20 WBC 7.05 (4.0-11.0) K/uL RBC 4.23 L (4.30-5.90) M/uL Hgb 11.8 L (12.0-16.0) g/dL Hct 36.6 (36.0-46.0) % MCV 86.5 (80.0-98.0) fL MCH 27.9 (27.0-32.0) pg MCHC 32.2 (31.0-37.0) g/dL RDW Std Deviation 42.6 (28.0-62.0) fl RDW Coeff of Jyotsna 14 (11.0-15.0) % Plt Count 334 (150-400) K/uL MPV 10.40 (7.40-12.00) fL Nucleated RBC % 0.0 /100WBC Nucleated RBCs # 0 K/uL Sodium 139 (136-146) mmol/L Potassium 4.2 (3.5-5.1) mmol/L Chloride 110 (98-110) mmol/L Carbon Dioxide 22 (21-31) mmol/L BUN 16 (6.0-23.0) mg/dL Creatinine 0.7 (0.6-1.5) mg/dL Est Cr Clr Drug Dosing 94.63 mL/min Estimated GFR (MDRD) > 60.0 ml/min Glucose 95 (60-110) mg/dL Calcium 8.8 (8.8-10.8) mg/dL HCG, Qual NEGATIVE (NEG) Blood Type Antibody Screen 07/09/17 Range/Units 08:20 WBC (4.0-11.0) K/uL RBC (4.30-5.90) M/uL Hgb (12.0-16.0) g/dL Hct (36.0-46.0) % MCV (80.0-98.0) fL MCH (27.0-32.0) pg MCHC (31.0-37.0) g/dL RDW Std Deviation (28.0-62.0) fl RDW Coeff of Jyotsna (11.0-15.0) % Plt Count (150-400) K/uL MPV (7.40-12.00) fL Nucleated RBC % /100WBC Nucleated RBCs # K/uL Sodium (136-146) mmol/L Potassium (3.5-5.1) mmol/L Chloride (98-110) mmol/L Carbon Dioxide (21-31) mmol/L BUN (6.0-23.0) mg/dL Creatinine (0.6-1.5) mg/dL Est Cr Clr Drug Dosing mL/min Estimated GFR (MDRD) ml/min Glucose (60-110) mg/dL Calcium (8.8-10.8) mg/dL HCG, Qual (NEG) Blood Type B POSITIVE Antibody Screen NEGATIVE Med Orders - Current: Current Medications Fentanyl (Sublimaze) 50 mcg IVPUSH SEECOMMENT PRN PRN Reason: Pain (moderate 4-6) Lactated Ringer's (Ringers, Lactated) 1,000 mls @ 125 mls/hr IV ASDIRECTED SELINA Last Admin: 07/09/17 07:40 Dose: 125 mls/hr Promethazine HCl (Phenadoz) 12.5 - 25 mg RECTAL ASDIRECTED PRN PRN Reason: Nausea/Vomiting Scopolamine (Transderm-Scop) 1.5 mg TRDERM Q72H PRN PRN Reason: Nausea Last Admin: 07/09/17 08:20 Dose: 1.5 mg Sodium Chloride (Saline Flush) 10 ml FLUSH ASDIRECTED PRN PRN Reason: Keep Vein Open Sodium Chloride (Saline Flush) 2.5 ml FLUSH ASDIRECTED PRN PRN Reason: Keep Vein Open Sodium Chloride (Saline Flush) 10 ml FLUSH ASDIRECTED PRN PRN Reason: Keep Vein Open Sodium Chloride (Saline Flush) 2.5 ml FLUSH ASDIRECTED PRN PRN Reason: Keep Vein Open Discontinued Medications Dexamethasone (Dexamethasone) Confirm Administered Dose 20 mg .ROUTE .STK-MED ONE Stop: 07/09/17 09:27 Fentanyl (Sublimaze) Confirm Administered Dose 100 mcg .ROUTE .STK-MED ONE Stop: 07/09/17 07:21 Fentanyl (Sublimaze) Confirm Administered Dose 100 mcg .ROUTE .STK-MED ONE Stop: 07/09/17 09:27 Fentanyl (Sublimaze) Confirm Administered Dose 100 mcg .ROUTE .STK-MED ONE Stop: 07/09/17 09:53 Fentanyl (Sublimaze) Confirm Administered Dose 100 mcg .ROUTE .STK-MED ONE Stop: 07/09/17 10:11 Fentanyl (Sublimaze) Confirm Administered Dose 100 mcg .ROUTE .STK-MED ONE Stop: 07/09/17 10:26 Glycopyrrolate () Confirm Administered Dose 1 mg .ROUTE .STK-MED ONE Stop: 07/09/17 10:24 Cefazolin Sodium/Dextrose 2 gm (/ Premix) 50 mls @ 100 mls/hr IV ONETIME ONE Stop: 07/08/17 12:03 Ketorolac Tromethamine (Toradol) Confirm Administered Dose 30 mg .ROUTE .STK- MED ONE Stop: 07/09/17 10:29 Lidocaine (Xylocaine-Mpf 2%) Confirm Administered Dose 5 ml .ROUTE .STK-MED ONE Stop: 07/09/17 07:21 Midazolam HCl (Versed 1 Mg/Ml) Confirm Administered Dose 2 mg .ROUTE .STK-MED ONE Stop: 07/09/17 07:21 Neostigmine Methylsulfate (Neostigmine) Confirm Administered Dose 5 mg .ROUTE .STK-MED ONE Stop: 07/09/17 10:24 Octyl Cyanoacrylate (Dermabond Advance) Confirm Administered Dose 1 applic .ROUTE .STK-MED ONE Stop: 07/09/17 10:14 Ondansetron HCl (Zofran) Confirm Administered Dose 4 mg .ROUTE .STK-MED ONE Stop: 07/09/17 07:21 Propofol (Diprivan 20 Ml) Confirm Administered Dose 200 mg .ROUTE .STK-MED ONE Stop: 07/09/17 07:21 Rocuronium [place] (Zemuron) Confirm Administered Dose 100 mg .ROUTE .STK-MED ONE Stop: 07/09/17 07:21 - Exam General: Reports: Alert, Oriented HEENT: Reports: Pupils Equal, Pupils Reactive, EOMI, Mucous Membr. Moist/[place] Neck: Reports: Supple Lungs: Reports: Clear to Auscultation, Normal Respiratory Effort Cardiovascular: Reports: Regular Rate, Regular Rhythm GI/Abdominal Exam: Normal Bowel Sounds, Soft, Non-Tender, No Organomegaly, No Distention, No Abnormal Bruit, No Mass, Pelvis Stable (Female) Exam: Normal External Exam, Normal Speculum Exam, Normal Bimanual Exam Rectal (Female) Exam: Normal Exam, Normal Rectal Tone Back Exam: Reports: Normal Inspection, Full Range of Motion Extremities: Normal Inspection, Normal Range of Motion, Non-Tender, No Pedal Edema, Normal Capillary Refill Skin: Reports: Warm, Dry, Intact Wound/Incisions: Reports: Healing Well Neurological: Reports: No New Focal Deficit Psy/Mental Status: Reports: Alert, Normal Affect, Normal Mood *Q Meaningful Use (DIS) - VTE *Q VTE Criteria *Q: - Stroke *Q Stroke Criteria *Q: - AMI *Q AMI Criteria *Q:
[2017-07-09] MEDS: fentaNYL 100 MCG/2 ML SDV IVPUSH PRN ×2 (11:05→11:10)
--- NOTE | 2017-07-09 11:15 | PCM.POSTAN ---
POST ANESTHESIA ASSESSMENT - MENTAL STATUS Mental Status: Alert - RESPIRATORY Respiratory Status: Respiratory Rate WNL, Airway Patent, O2 Saturation Stable - CARDIOVASCULAR CV Status: Pulse Rate WNL, Blood Pressure Stable - GASTROINTESTINAL GI Status: No Symptoms - PAIN Pain Score: 6 - POST OP HYDRATION Hydration Status: Adequate & Stable - OBSERVATIONS Free Text/Narrative:: no anesthesia problems
[2017-07-09] MEDS ORDERED: diphenhydrAMINE 50 MG/ML SDV IVPUSH ONE (12:12)
[2017-07-09 13:46] VITALS: BP 108/64
--- NOTE | 2017-07-09 14:07 | PCM48HPAN ---
Post Anesthesia Note - EVALUATION WITHIN 48HRS OF ANESTHETIC Vital Signs in Normal Range: Yes Patient Participated in Evaluation: Yes Respiratory Function Stable: Yes Airway Patent: Yes Cardiovascular Function Stable: Yes Hydration Status Stable: Yes Pain Control Satisfactory: Yes Nausea and Vomiting Control Satisfactory: Yes Mental Status Recovered: Yes - COMMENTS/OBSERVATIONS Free Text/Narrative:: Pt very apprehensive to get up and moving although no anesthesia concerns at this time.
--- NOTE | 2017-07-09 14:27 | OR ---
SURGEON: Rafael Pollock MD DATE OF PROCEDURE: 07/09/2017 PREOPERATIVE DIAGNOSIS: Pelvic pain, right ovarian cyst. POSTOPERATIVE DIAGNOSIS: Pelvic pain, right ovarian cyst. OPERATION PERFORMED: Multiple puncture and diagnostic laparoscopy, peritoneal lavage, lysis of adhesion, and right salpingo-oophorectomy. FILLING HAND: MARKUS Thorpe and Dr. Redman. ANESTHESIA: General endotracheal intubation, Charlee Blankenship and Dr. Mitchell. ESTIMATED BLOOD LOSS: Less than 50 mL. COMPLICATIONS: None. FINDINGS: Pelvic adhesion specially to the right tube and ovary, and the right tube is ruptured and it is necrotic. INDICATION FOR SURGERY: [place] refer to the admit note. PROCEDURE IN DETAIL: The patient was brought to the OR, properly identified, and after adequate level of general anesthesia, the patient was prepped and draped in sterile fashion as usual. A straight catheter was used to empty the bladder and Hulka manipulator was placed in the uterus for manipulation. The operation shifted abdominally. Stab wound done beneath the umbilicus. The Veress needle was placed in the peritoneal cavity and that cavity insufflated 3.5 L of carbon dioxide. The skin incision enlarged to accommodate 5 mm trocar and utilizing the Visiport technique, the peritoneal cavity was entered. Once we entered the peritoneal cavity, the patient was placed in Trendelenburg and 10-12 trocar placed in the left iliac fossa and 5 mm trocar in the right iliac fossa. We started by reflecting the intestine away from the pelvis and operative fold. There was adhesion between the sigmoid colon, omentum, and the right tubes and ovary that was easily lysed with sharp and blunt and hydrodissection. Once that lysed and then thorough irrigation and peritoneal lavage was performed, washing all the blood and blood product from the pelvis. Then the inspection of the pelvis shows uterus is normal size. The left ovary essentially is normal. The right ovary is necrotic and is ruptured, so a decision was made to do a right salpingo- oophorectomy and that is done by identifying the superior pedicle and the superior pedicle coagulated and transected using the Eduardo Harmonic scapula, and then the tubes were using the Eduardo Harmonic scapula is carefully dissected from the uterus and specimen. The right tube and ovary was removed and placed in an Endobag and removed laparoscopically. Once these were done, then thorough irrigation of the pelvis done. There was no oozing, no bleeding. At this time, the procedure was ended. The instrument and hardware were retrieved from the abdomen and the vagina, and the multiple laparoscopic incisions were closed in layers. Instrument and sponge count was correct. The patient tolerated the procedure well, went to recovery room in stable general condition. GEORGE DAS /[id number]
== END 2017-07-09 14:38 | disposition home or self-care (01) ==
LOC: MW.SDS 07:24
PROVIDERS: ATTEND Obstetrics & Gynecology
DX: N73.6 Female pelvic peritoneal adhesions (postinfective) (principal); G43.909 Migraine, unspecified, not intractable, without status migrainosus; F41.9 Anxiety disorder, unspecified; F32.9 Major depressive disorder, single episode, unspecified; J45.909 Unspecified asthma, uncomplicated; K21.9 Gastro-esophageal reflux disease without esophagitis; E66.9 Obesity, unspecified; Z79.899 Other long term (current) drug therapy; Z88.0 Allergy status to penicillin; Z88.1 Allergy status to other antibiotic agents; Z88.5 Allergy status to narcotic agent; Z88.8 Allergy status to other drugs, medicaments and biological substances; Z98.51 Tubal ligation status; Z98.890 Other specified postprocedural states; Z68.37 Body mass index [BMI] 37.0-37.9, adult; Z87.442 Personal history of urinary calculi
CPT/HCPCS: 36415; 58661; 80048; 84703; 85027; 86850; 86900; 86901; 88307; A9270; J1100; J1200; J1885; J2250; J2405; J3010; J7120; 00840; J2704

== ENCOUNTER 2017-08-07 20:00 | Emergency (ER) | payer MEDICAID ==
[2017-08-07] MEDS ORDERED: methylPREDNISolone Sodium Succinate 125 MG/2 ML SDV IM ONE (20:20)
[2017-08-07] MEDS ORDERED: Albuterol/Ipratropium 3.0-0.5 MG/3 ML Neb Soln NEB ONE (20:24)
--- NOTE | 2017-08-07 20:25 | EDM.PDOC ---
ED HPI GENERAL MEDICAL PROBLEM - General Chief Complaint: Respiratory Problem Stated Complaint: PT HAS SORE THROAT Time Seen by Provider: 08/07/17 20:23 Source of Information: Reports: Patient - History of Present Illness INITIAL COMMENTS - FREE TEXT/NARRATIVE: HISTORY AND PHYSICAL: History of present illness: []Patient presents for cough for 1-1/2-2 weeks increasing in severity she does have a history of asthma she has been using her inhaler quite a bit she has some chest tightness but does not feel short of breath no pursed lip breathing no tripoding no retractions No fever nausea vomiting chills sweats she does have secondary complaint of sore throat which has coincided for about a week and a half no drooling trismus or hot potato voice Review of systems: As per history of present illness and below otherwise all systems reviewed and negative. Past medical history: As per history of present illness and as reviewed below otherwise noncontributory. Surgical history: As per history of present illness and as reviewed below otherwise noncontributory. Social history: No reported history of drug or alcohol abuse. Family history: As per history of present illness and as reviewed below otherwise noncontributory. Physical exam: HEENT: Atraumatic, normocephalic, pupils reactive, negative for conjunctival pallor or scleral icterus, mucous membranes moist, throat clear, neck supple, nontender, trachea midline. Patchy exudate on 2+ tonsils no evidence of abscess clinically moderate erythema of the oropharynx noted meningeal sign Lungs: Clear to auscultation, breath sounds equal bilaterally, chest nontender. Heart: S1S2, regular, negative for clicks, rubs, or JVD. Abdomen: Soft, nondistended, nontender. Negative for masses or hepatosplenomegaly. Negative for costovertebral tenderness. Pelvis: Stable nontender. Genitourinary: Deferred. Rectal: Deferred. Extremities: Atraumatic, negative for cords or calf pain. Neurovascular unremarkable. Neuro: Awake, alert, oriented. Cranial nerves II through XII unremarkable. Cerebellum unremarkable. Motor and sensory unremarkable throughout. Exam nonfocal. Diagnostics: []Rapid strep Chest 2 views Therapeutics: []DuoNeb Solu-Medrol 125 mg IM Z-Dwight Medrol Dosepak Continue HFA Impression: []Acute bronchitis/pharyngitis History of asthma Definitive disposition and diagnosis as appropriate pending reevaluation and review of above. Treatments ANNUAL GIVING DIRECTOR: Reports: Acetaminophen throat Pain Score (Numeric/FACES): 6 - Related Data Allergies Allergy/AdvReac Type Severity Reaction Status Date / Time cefaclor [From Ceclor] Allergy Hives Verified 08/07/17 20:07 hydromorphone [From Dilaudid] Allergy Swelling Verified 08/07/17 20:07 Penicillins Allergy Anaphylactic Verified 08/07/17 20:07 Shock sumatriptan [From Imitrex] Allergy Hives Verified 08/07/17 20:07 verapamil Allergy Hives Verified 08/07/17 20:07 Home Meds: Home Meds Omeprazole 40 mg PO DAILY 06/22/17 [History] Sertraline [Zoloft] 150 mg PO BEDTIME 06/22/17 [History] Topiramate [Topamax] 25 mg PO BID 06/22/17 [History] busPIRone [Buspar] 25 mg PO BID 06/22/17 [History] traZODone HCl [Trazodone HCl] 300 mg PO BEDTIME PRN 06/22/17 [History] Albuterol [IJD: Albuterol HFA] 1 puff INH ASDIRECTED PRN 07/08/17 [History] Past Medical History HEENT History: Reports: None Other HEENT History: wears glasses Cardiovascular History: Reports: Arrhythmia Other Cardiovascular History: SVT, one four years ago was sustained for few hours Respiratory History: Reports: Asthma Other Respiratory History: very mild, rarely uses inhaler Gastrointestinal History: Reports: GERD Genitourinary History: Reports: Renal Calculus RN NAVIGATOR History: Reports: Other (See Below) Other OB/BYN History: PCOS, Ovarian cysts with rupture and hemorrhage 2 weeks ago Musculoskeletal History: Reports: Back Pain, Chronic Other Musculoskeletal History: Buldging disk L4 and L5 Neurological History: Reports: Migraines, Other (See Below) Other Neuro History: hx of restless leg syndrome, has bulging disc at L4-L5 Psychiatric History: Reports: Anxiety, Depression Other Psychiatric History: Insomnia Endocrine/Metabolic History: Reports: Obesity/BMI 30+ Hematologic History: Reports: Anemia Other Hematologic History: during Immunologic History: Reports: None Oncologic (Cancer) History: Reports: None - Infectious Disease History Infectious Disease History: Reports: Chicken Pox - Past Surgical History HEENT Surgical History: Reports: Eye Surgery, Oral Surgery Other HEENT Surgeries/Procedures: wisdom teeth, 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) Cardiovascular Surgical History: Reports: Cardiac Ablation Respiratory Surgical History: Reports: None GI Surgical History: Reports: None Female Surgical History: Reports: Tubal Ligation Endocrine Surgical History: Reports: None Neurological Surgical History: Reports: None Musculoskeletal Surgical History: Reports: None Oncologic Surgical History: Reports: None Dermatological Surgical History: Reports: None Social & Family History - Family History Family Medical History: Noncontributory HEENT: Reports: None Cardiac: Reports: Heart Failure Respiratory: Reports: None GI: Reports: None : Reports: None OBGYN: Reports: Other (See Below) Other OBGYN Family History: mother had hysterectomy from abnormal bleeding Musculoskeletal: Reports: None Neurological: Reports: None Psychiatric: Reports: None Endocrine/Metabolic: Reports: Diabetes, Type I Hematologic: Reports: None Immunologic: Reports: None Dermatologic: Reports: None Oncologic: Reports: Other (See Below) Other Oncologic Family History: cancer unknown - Tobacco Use Smoking Status *Q: Never Smoker Second Hand Smoke Exposure: No - Caffeine Use Caffeine Use: Reports: Soda - Recreational Drug Use Recreational Drug Use: No Drug Use in Last 12 Months: No ED ROS GENERAL - Review of Systems Review Of Systems: ROS reveals no pertinent complaints other than HPI. ED EXAM, GENERAL - Physical Exam Exam: See Below Course - Vital Signs Last Recorded V/S: Last Vital Signs Temp 36.9 C 08/07/17 20:08 Pulse 89 08/07/17 20:08 Resp 19 08/07/17 20:08 BP 108/58 L 08/07/17 20:08 Pulse Ox 98 08/07/17 20:08 - Orders/Labs/Meds Orders: Active Orders 24 hr Category Date Time Status RT Aerosol Therapy [RC] ASDIRECTED Care 08/07/17 20:25 Active Chest 2V [CR] Stat Exams 08/07/17 20:16 Taken CULTURE STREP A CONFIRMATION [RM] Stat Lab 08/07/17 20:20 Results STREP SCRN A RAPID W CULT CONF [RM] Stat Lab 08/07/17 20:20 Results Labs: Laboratory Tests 08/07/17 Range/Units 20:20 Urine HCG, Qual NEGATIVE (NEGATIVE) Meds: Medications Discontinued Medications Generic Name Dose Route Start Last Admin Trade Name Freq PRN Reason Stop Dose Admin Albuterol/Ipratropium 3 ml 08/07/17 20:24 08/07/17 20:31 Duoneb 3.0-0.5 Mg/3 Ml NEB 08/07/17 20:25 3 ml ONETIME ONE Administration Methylprednisolone Sodium Succinate 125 mg 08/07/17 20:20 08/07/17 20:40 Solu-Medrol IM 08/07/17 20:21 125 mg ONETIME ONE Administration Departure - Departure Time of Disposition: 21:25 Disposition: Home, Self-Care 01 Condition: Good Clinical Impression: Acute bronchitis - Discharge Information Referrals: PCP,None [Primary Care Provider] - Forms: ED Department Discharge Additional Instructions: The following information is given to patients seen in the emergency department who are being discharged to home. This information is to outline your options for follow-up care. We provide all patients seen in our emergency department with a follow-up referral. The need for follow-up, as well as the timing and circumstances, are variable depending upon the specifics of your emergency department visit. If you don't have a primary care physician on staff, we will provide you with a referral. We always advise you to contact your personal physician following an emergency department visit to inform them of the circumstance of the visit and for follow-up with them and/or the need for any referrals to a consulting specialist. The emergency department will also refer you to a specialist when appropriate. This referral assures that you have the opportunity for follow-up care with a specialist. All of these measure are taken in an effort to provide you with optimal care, which includes your follow-up. Under all circumstances we always encourage you to contact your private physician who remains a resource for coordinating your care. When calling for follow-up care, please make the office aware that this follow-up is from your recent emergency room visit. If for any reason you are refused follow-up, please contact the [facility] emergency department at and asked to speak to the emergency department charge nurse. - My Orders Last 24 Hours: My Active Orders 08/07/17 20:16 Chest 2V [CR] Stat 08/07/17 20:20 CULTURE STREP A CONFIRMATION [RM] Stat STREP SCRN A RAPID W CULT CONF [RM] Stat 08/07/17 20:25 RT Aerosol Therapy [RC] ASDIRECTED - Assessment/Plan Last 24 Hours: My Active Orders 08/07/17 20:16 Chest 2V [CR] Stat 08/07/17 20:20 CULTURE STREP A CONFIRMATION [] Stat STREP SCRN A RAPID W CULT CONF [] Stat 08/07/17 20:25 RT Aerosol Therapy [RC] ASDIRECTED
[2017-08-07 21:37] VITALS: BP 128/63
--- NOTE | 2017-08-10 13:27 | CR ---
EXAM DATE: 08/07/17 PATIENT'S AGE: 26 Patient: JESSICA DC Facility: [place], [place] Site . Site : [id number] Study: XRay Chest [id number] 8:55:27 PM Ordering Physician: Ana Clements Final Report: CHEST 2 VIEWS INDICATION: Short of breath. Cough. IMPRESSION: Normal heart size and vascular pattern. Lungs are clear. No pneumothorax or pleural abnormality. Dictated by Jim Nassar MD @ Aug 07 2017 9:05PM (Electronic Signature) Report Signed by Proxy. [facility]ITAL[facility]
== END 2017-08-07 21:34 | disposition home or self-care (01) ==
LOC: MW.ED 20:00
DX: J20.9 Acute bronchitis, unspecified (principal); J45.909 Unspecified asthma, uncomplicated; K21.9 Gastro-esophageal reflux disease without esophagitis; G43.909 Migraine, unspecified, not intractable, without status migrainosus; F41.9 Anxiety disorder, unspecified; F32.9 Major depressive disorder, single episode, unspecified; E66.9 Obesity, unspecified; Z68.38 Body mass index [BMI] 38.0-38.9, adult; Z98.890 Other specified postprocedural states; Z79.899 Other long term (current) drug therapy; Z88.0 Allergy status to penicillin; Z88.6 Allergy status to analgesic agent
CPT/HCPCS: 71020; 81025; 87081; 87880; 94640; 96372; 99284; J2930; 99282

== ENCOUNTER 2017-09-18 10:52 | Emergency (ER) | payer MEDICAID ==
[2017-09-18] MEDS ORDERED: Ketorolac 30 MG/ML SDV IVPUSH ONE (11:12)
[2017-09-18] MEDS ORDERED: Sodium Chloride 0.9% 2.5 ML Syringe FLUSH PRN (11:12)
[2017-09-18] MEDS ORDERED: Ondansetron 4 MG/2 ML SDV IVPUSH ONE (11:12)
[2017-09-18] MEDS ORDERED: Sodium Chloride 0.9% 10 ML Syringe FLUSH PRN (11:12)
--- NOTE | 2017-09-18 11:15 | EDM.PDOC ---
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 Pollock in our clinic and who presents today with 3 days of left lower quadrant and left back pain that has had gradual onset and is similar to her cyst pain. Patient says she has a history of a bilateral tubal ligation and a cervical ablation and has not had periods or vaginal bleeding for a long time and with the pain she has had vaginal bleeding. She is not gushing but she has passed some clots and most of the time it is when she goes to the bathroom and wipes. Her pain is localized to the left lower side and she has had normal bowel movements and no dysuria frequency or flank pain. She is nauseated from the pain but has not had vomiting or fever. Patient has been taking over-the- counter ibuprofen for the pain Review of systems: As per history of present illness and below otherwise all systems reviewed and negative. Past medical history: As per history of present illness and as reviewed below otherwise noncontributory. Surgical history: As per history of present illness and as reviewed below otherwise noncontributory. Social history: No reported history of drug or alcohol abuse. Family history: As per history of present illness and as reviewed below otherwise noncontributory. Physical exam: Gen.: Well-developed mildly overweight female who is nontoxic and speaking clearly and easily in the ED. She looks uncomfortable with certain movements HEENT: Atraumatic, normocephalic, negative for conjunctival pallor or scleral icterus, mucous membranes moist, throat clear, neck supple, nontender, trachea midline. Lungs: Clear to auscultation, breath sounds equal bilaterally, chest nontender. Heart: S1S2, regular rate and rhythm no overt murmurs Abdomen: Soft, nondistended, there is mild tenderness on deep palpation in the left lower abdomen area and suprapubic region but the remainder of the abdominal exam is without tenderness rebound or guarding. Bowel sounds are slightly hypoactive. Negative for masses or hepatosplenomegaly. Negative for costovertebral tenderness. Pelvis: Stable nontender. Genitourinary: External genitalia are within normal limits. There is dark blood in the vault which is thick and mucousy and the cervix is closed. There is no aggressive bleeding from the cervix. The uterus is small mildly tender and the adnexa were not palpated due to the patient's discomfort. Rectal: Deferred. Extremities: Atraumatic, negative for cords or calf pain. Neurovascular unremarkable. Neuro: Awake, alert, oriented. Cranial nerves II through XII unremarkable. Cerebellum unremarkable. Motor and sensory unremarkable throughout. Exam nonfocal. Diagnostics: CBC CMP UA hCG pelvic ultrasound CT scan of the abdomen and pelvis Therapeutics: IV Zofran Toradol morphine--- patient says she has reactions to a lot of but can take morphine. Patient is aware of testing results including a negative pelvic ultrasound. I have asked her she would like to proceed with a CAT scan to evaluate bowel and possible kidney and she says she would like to do that. I discussed with the patient the CT scan results which do not indicate a source for her pain or her bleeding. I've advised her to connect with Dr. Pollock in the clinic for further evaluation and care and I will give her prescription for tramadol for discomfort. I've advised on reasons to return to the ED. Impression: Left lower abdominal/pelvic pain etiology unclear stable; vaginal bleeding stable Definitive disposition and diagnosis as appropriate pending reevaluation and review of above. Left Lower Abdominal Pain Score (Numeric/FACES): 8 - Related Data Allergies Allergy/AdvReac Type Severity Reaction Status Date / Time cefaclor [From Ceclor] Allergy Hives Verified 09/18/17 11:02 hydromorphone [From Dilaudid] Allergy Swelling Verified 09/18/17 11:02 Penicillins Allergy Anaphylactic Verified 09/18/17 11:02 Shock sumatriptan [From Imitrex] Allergy Hives Verified 09/18/17 11:02 verapamil Allergy Hives Verified 09/18/17 11:02 Home Meds: Home Meds Omeprazole 40 mg PO DAILY 06/22/17 [History] Sertraline [Zoloft] 150 mg PO BEDTIME 06/22/17 [History] Topiramate [Topamax] 25 mg PO BID 06/22/17 [History] busPIRone [Buspar] 25 mg PO BID 06/22/17 [History] traZODone HCl [Trazodone HCl] 300 mg PO BEDTIME PRN 06/22/17 [History] Albuterol [IJD: Albuterol HFA] 1 puff INH ASDIRECTED PRN 07/08/17 [History] Past Medical History HEENT History: Reports: None Other HEENT History: wears glasses Cardiovascular History: Reports: Arrhythmia Other Cardiovascular History: SVT, one four years ago was sustained for few hours Respiratory History: Reports: Asthma Other Respiratory History: very mild, rarely uses inhaler Gastrointestinal History: Reports: GERD Genitourinary History: Reports: Renal Calculus MACHINE LEAD BURNER History: Reports: Other (See Below) Other OB/BYN History: PCOS, Ovarian cysts with rupture and hemorrhage 2 weeks ago Musculoskeletal History: Reports: Back Pain, Chronic Other Musculoskeletal History: Buldging disk L4 and L5 Neurological History: Reports: Migraines, Other (See Below) Other Neuro History: hx of restless leg syndrome, has bulging disc at L4-L5 Psychiatric History: Reports: Anxiety, Depression Other Psychiatric History: Insomnia Endocrine/Metabolic History: Reports: Obesity/BMI 30+ Hematologic History: Reports: Anemia Other Hematologic History: during Immunologic History: Reports: None Oncologic (Cancer) History: Reports: None - Infectious Disease History Infectious Disease History: Reports: Chicken Pox - Past Surgical History HEENT Surgical History: Reports: Eye Surgery, Oral Surgery Other HEENT Surgeries/Procedures: wisdom teeth, 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) Cardiovascular Surgical History: Reports: Cardiac Ablation Respiratory Surgical History: Reports: None GI Surgical History: Reports: None Female Surgical History: Reports: Tubal Ligation Endocrine Surgical History: Reports: None Neurological Surgical History: Reports: None Musculoskeletal Surgical History: Reports: None Oncologic Surgical History: Reports: None Dermatological Surgical History: Reports: None Social & Family History - Family History Family Medical History: Noncontributory HEENT: Reports: None Cardiac: Reports: Heart Failure Respiratory: Reports: None GI: Reports: None : Reports: None OBGYN: Reports: Other (See Below) Other OBGYN Family History: mother had hysterectomy from abnormal bleeding Musculoskeletal: Reports: None Neurological: Reports: None Psychiatric: Reports: None Endocrine/Metabolic: Reports: Diabetes, Type I Hematologic: Reports: None Immunologic: Reports: None Dermatologic: Reports: None Oncologic: Reports: Other (See Below) Other Oncologic Family History: cancer unknown - Tobacco Use Smoking Status *Q: Never Smoker Second Hand Smoke Exposure: No - Caffeine Use Caffeine Use: Reports: Soda - Recreational Drug Use Recreational Drug Use: No Drug Use in Last 12 Months: No ED ROS GENERAL - Review of Systems Review Of Systems: ROS reveals no pertinent complaints other than HPI. ED EXAM, GENERAL - Physical Exam Exam: See Below (See dictation) Course - Vital Signs Last Recorded V/S: Last Vital Signs Temp 36.6 C 09/18/17 11:00 Pulse 51 L 09/18/17 13:43 Resp 18 09/18/17 13:43 BP 113/52 L 09/18/17 13:43 Pulse Ox 100 09/18/17 13:43 - Orders/Labs/Meds Orders: Active Orders 24 hr Category Date Time Status Sodium Chloride 0.9% [Saline Flush] Med 09/18/17 11:12 Active 10 ml FLUSH ASDIRECTED PRN Sodium Chloride 0.9% [Saline Flush] Med 09/18/17 11:12 Active 2.5 ml FLUSH ASDIRECTED PRN Saline Lock Insert [OM.PC] Stat Oth 09/18/17 11:11 Ordered Medication Orders Sodium Chloride (Saline Flush) 10 ml FLUSH ASDIRECTED PRN PRN Reason: Keep Vein Open Last Admin: 09/18/17 11:47 Dose: 10 ml Sodium Chloride (Saline Flush) 2.5 ml FLUSH ASDIRECTED PRN PRN Reason: Keep Vein Open Last Admin: 09/18/17 11:47 Dose: 2.5 ml Labs: Laboratory Tests 09/18/17 09/18/17 09/18/17 Range/Units 11:41 11:41 11:41 WBC 10.56 (4.0-11.0) K/uL RBC 4.37 (4.30-5.90) M/uL Hgb 12.1 (12.0-16.0) g/dL Hct 37.0 (36.0-46.0) % MCV 84.7 (80.0-98.0) fL MCH 27.7 (27.0-32.0) pg MCHC 32.7 (31.0-37.0) g/dL RDW Std Deviation 42.0 (28.0-62.0) fl RDW Coeff of Jy[place] 14 (11.0-15.0) % Plt Count 342 (150-400) K/uL MPV 10.90 (7.40-12.00) fL Neut % (Auto) 60.3 (48.0-80.0) % Lymph % (Auto) 31.6 (16.0-40.0) % [place] % (Auto) 5.5 (0.0-15.0) % Eos % (Auto) 2.1 (0.0-7.0) % Baso % (Auto) 0.5 (0.0-1.5) % Neut # (Auto) 6.4 H (1.4-5.7) K/uL Lymph # (Auto) 3.3 H (0.6-2.4) K/uL [place] # (Auto) 0.6 (0.0-0.8) K/uL Eos # (Auto) 0.2 (0.0-0.7) K/uL Baso # (Auto) 0.1 (0.0-0.1) K/uL Nucleated RBC % 0.0 /100WBC Nucleated RBCs # 0 K/uL Sodium 138 (136-146) mmol/L Potassium 4.1 (3.5-5.1) mmol/L Chloride 111 H (98-110) mmol/L Carbon Dioxide 22 (21-31) mmol/L BUN 11 (6.0-23.0) mg/dL Creatinine 0.8 (0.6-1.5) mg/dL Est Cr Clr Drug Dosing 82.80 mL/min Estimated GFR (MDRD) > 60.0 ml/min Glucose 96 (60-110) mg/dL Calcium 9.1 (8.8-10.8) mg/dL Total Bilirubin 0.1 (0.1-1.5) mg/dL AST 11 (5-40) IU/L ALT 14 (8-54) IU/L Alkaline Phosphatase 106 (40-150) Total Protein 7.2 (6.0-8.0) g/dL Albumin 3.7 (3.5-5.0) g/dL Globulin 3.5 (2.0-3.5) g/dL Albumin/Globulin Ratio 1.1 L (1.3-2.8) HCG, Qual NEGATIVE (NEG) Urine Color Urine Appearance Urine pH (5.0-8.0) Ur Specific [place] (1.001-1.035) Urine Protein (NEGATIVE) mg/dL Urine Glucose (UA) (NEGATIVE) mg/dL Urine Ketones (NEGATIVE) mg/dL Urine Occult Blood (NEGATIVE) Urine Nitrite (NEGATIVE) Urine Bilirubin (NEGATIVE) Urine Urobilinogen (<2.0) EU/dL Ur Leukocyte Esterase (NEGATIVE) Urine RBC (0-2/HPF) Urine WBC (0-5/HPF) Ur Epithelial Cells (NONE-FEW) Urine Bacteria (NEGATIVE) Urine Mucus (NONE-MOD) 09/18/17 Range/Units 12:21 WBC (4.0-11.0) K/uL RBC (4.30-5.90) M/uL Hgb (12.0-16.0) g/dL Hct (36.0-46.0) % MCV (80.0-98.0) fL MCH (27.0-32.0) pg MCHC (31.0-37.0) g/dL RDW Std Deviation (28.0-62.0) fl RDW Coeff of [place] (11.0-15.0) % Plt Count (150-400) K/uL MPV (7.40-12.00) fL Neut % (Auto) (48.0-80.0) % Lymph % (Auto) (16.0-40.0) % [place] % (Auto) (0.0-15.0) % Eos % (Auto) (0.0-7.0) % Baso % (Auto) (0.0-1.5) % Neut # (Auto) (1.4-5.7) K/uL Lymph # (Auto) (0.6-2.4) K/uL [place] # (Auto) (0.0-0.8) K/uL Eos # (Auto) (0.0-0.7) K/uL Baso # (Auto) (0.0-0.1) K/uL Nucleated RBC % /100WBC Nucleated RBCs # K/uL Sodium (136-146) mmol/L Potassium (3.5-5.1) mmol/L Chloride (98-110) mmol/L Carbon Dioxide (21-31) mmol/L BUN (6.0-23.0) mg/dL Creatinine (0.6-1.5) mg/dL Est Cr Clr Drug Dosing mL/min Estimated GFR (MDRD) ml/min Glucose (60-110) mg/dL Calcium (8.8-10.8) mg/dL Total Bilirubin (0.1-1.5) mg/dL AST (5-40) IU/L ALT (8-54) IU/L Alkaline Phosphatase (40-150) Total Protein (6.0-8.0) g/dL Albumin (3.5-5.0) g/dL Globulin (2.0-3.5) g/dL Albumin/Globulin Ratio (1.3-2.8) HCG, Qual (NEG) Urine Color YELLOW Urine Appearance CLEAR Urine pH 6.0 (5.0-8.0) Ur Specific [place] 1.025 (1.001-1.035) Urine Protein NEGATIVE (NEGATIVE) mg/dL Urine Glucose (UA) NEGATIVE (NEGATIVE) mg/dL Urine Ketones NEGATIVE (NEGATIVE) mg/dL Urine Occult Blood NEGATIVE (NEGATIVE) Urine Nitrite NEGATIVE (NEGATIVE) Urine Bilirubin NEGATIVE (NEGATIVE) Urine Urobilinogen 0.2 (<2.0) EU/dL Ur Leukocyte Esterase NEGATIVE (NEGATIVE) Urine RBC 0-1 (0-2/HPF) Urine WBC 0-1 (0-5/HPF) Ur Epithelial Cells OCCASIONAL (NONE-FEW) Urine Bacteria RARE (NEGATIVE) Urine Mucus LIGHT (NONE-MOD) Meds: Medications Generic Name Dose Route Start Last Admin Trade Name Freq PRN Reason Stop Dose Admin Sodium Chloride 10 ml 09/18/17 11:12 09/18/17 11:47 Saline Flush FLUSH 10 ml ASDIRECTED PRN Administration Keep Vein Open Sodium Chloride 2.5 ml 09/18/17 11:12 09/18/17 11:47 Saline Flush FLUSH 2.5 ml ASDIRECTED PRN Administration Keep Vein Open Discontinued Medications Generic Name Dose Route Start Last Admin Trade Name Freq PRN Reason Stop Dose Admin Iopamidol 100 ml 09/18/17 13:31 09/18/17 13:32 Isovue Multipack-370 (76%) IVPUSH 09/18/17 13:32 100 ml ONETIME STA Administration Ketorolac Tromethamine 30 mg 09/18/17 11:12 09/18/17 11:39 Toradol IVPUSH 09/18/17 11:13 30 mg ONETIME ONE Administration Morphine Sulfate 4 mg 09/18/17 11:27 09/18/17 11:46 Morphine IVPUSH 09/18/17 11:28 4 mg ONETIME ONE Administration Ondansetron HCl 4 mg 09/18/17 11:12 09/18/17 11:39 Zofran IVPUSH 09/18/17 11:13 4 mg ONETIME ONE Administration Departure - Departure Time of Disposition: 14:04 Disposition: Home, Self-Care 01 Condition: Good Clinical Impression: Vaginal bleeding Abdominal pain Qualifiers: Abdominal location: left lower quadrant Qualified Code(s): R10.32 - Left lower quadrant pain - Discharge Information Referrals: PCP,None [Primary Care Provider] - Forms: ED Department Discharge Additional Instructions: The following information is given to patients seen in the emergency department who are being discharged to home. This information is to outline your options for follow-up care. We provide all patients seen in our emergency department with a follow-up referral. The need for follow-up, as well as the timing and circumstances, are variable depending upon the specifics of your emergency department visit. If you don't have a primary care physician on staff, we will provide you with a referral. We always advise you to contact your personal physician following an emergency department visit to inform them of the circumstance of the visit and for follow-up with them and/or the need for any referrals to a consulting specialist. The emergency department will also refer you to a specialist when appropriate. This referral assures that you have the opportunity for followup care with a specialist. All of these measure are taken in an effort to provide you with optimal care, which includes your followup. Under all circumstances we always encourage you to contact your private physician who remains a resource for coordinating your care. When calling for followup care, please make the office aware that this follow-up is from your recent emergency room visit. If for any reason you are refused follow-up, please contact the [facility] emergency department at and ask to speak to the emergency department charge nurse. Primary care-[facility] [address] [place] [address] Please push hydration rest and take ibuprofen as you have been doing and at the tramadol you have been prescribed. Please call and follow-up with Dr. Pollock next week and return to ER as needed and as discussed - My Orders Last 24 Hours: My Active Orders 09/18/17 11:11 Saline Lock Insert [OM.PC] Stat 09/18/17 11:12 Sodium Chloride 0.9% [Saline Flush] 10 ml FLUSH ASDIRECTED PRN Sodium Chloride 0.9% [Saline Flush] 2.5 ml FLUSH ASDIRECTED PRN - Assessment/Plan Last 24 Hours: My Active Orders 09/18/17 11:11 Saline Lock Insert [OM.PC] Stat 09/18/17 11:12 Sodium Chloride 0.9% [Saline Flush] 10 ml FLUSH ASDIRECTED PRN Sodium Chloride 0.9% [Saline Flush] 2.5 ml FLUSH ASDIRECTED PRN
[2017-09-18] MEDS ORDERED: Morphine 2 MG/ML Syringe IVPUSH ONE (11:27)
[2017-09-18 12:06] LABS: CHLORIDE,CL 111 mmol/L (98-110); SODIUM,NA 138 mmol/L (136-146)
--- NOTE | 2017-09-18 12:29 | US ---
EXAMINATION: Transvaginal pelvic ultrasound HISTORY: Pain COMPARISON: CT dated 07/07/2017 TECHNIQUE: Grayscale, color Doppler and spectral Doppler images obtained transvaginally. FINDINGS: The uterus is normal in size, contour, and echogenicity without focal uterine mass. Endomet rial stripe thickness measures 4 mm. Trace free pelvic fluid. History right oophorectomy. The left ovary is borderline in size measuring 4 x 2.2 x 2.3 cm with a fe w small follicles noted measuring up to 1.8 cm. There is good venous and arterial flow noted within t he left ovary without definite evidence of torsion. No adnexal masses. IMPRESSION: 1. No definite evidence of ovarian torsion.
[2017-09-18] MEDS ORDERED: Iopamidol 755 MG/ML 500 ML Multipack Bottle IVPUSH STA (13:31)
[2017-09-18 13:44] VITALS: BP 113/52
--- NOTE | 2017-09-18 13:53 | CT ---
CT of the abdomen and pelvis with contrast. HISTORY: Pain TECHNIQUE: Axial CT images were obtained of the abdomen and pelvis following administration of 100 mL of Isovue-370 in the left antecubital fossa without complication. Coronal and sagittal reconstructio ns obtained. FINDINGS: The lung bases are clear, no pleural effusion. The liver, spleen, adrenal glands, and pancreas appear normal. The gallbladder is normal. There is no bulky retroperitoneal lymphadenopathy or abdominal ascites. The kidneys enhance and function symmetrically without evidence of obstructive uropathy. There is a t iny 2 mm nonobstructing stone within the midpole of the right kidney. The large and small bowel are normal in caliber without evidence of obstruction. The appendix is norm al. There is a trace free pelvic fluid. A few small left ovarian cysts are noted no bulky or pelvic l ymphadenopathy. No free air. No suspicious osseous abnormalities identified. IMPRESSION: 1. No acute findings demonstrated within the abdomen or pelvis. 2. Probable tiny including left ovarian cysts with a small amount of free pelvic fluid, likely physio logic. 3. Tiny nonobstructing left renal stone.
== END 2017-09-18 14:18 | disposition home or self-care (01) ==
LOC: MW.ED 10:52
DX: N93.9 Abnormal uterine and vaginal bleeding, unspecified (principal); R10.32 Left lower quadrant pain; K21.9 Gastro-esophageal reflux disease without esophagitis; F32.9 Major depressive disorder, single episode, unspecified; Z86.2 Personal history of diseases of the blood and blood-forming organs and certain disorders involving the immune mechanism; Z98.890 Other specified postprocedural states; Z79.899 Other long term (current) drug therapy; Z88.0 Allergy status to penicillin; Z88.1 Allergy status to other antibiotic agents; Z88.5 Allergy status to narcotic agent; Z88.8 Allergy status to other drugs, medicaments and biological substances
CPT/HCPCS: 36415; 74177; 76830; 80053; 81001; 84703; 85025; 96374; 96375; 99284; J1885; J2270; J2405; Q9967; 99283

== ENCOUNTER 2017-11-13 20:49 | Emergency (ER) | payer BC, MEDICAID ==
[2017-11-13 22:15] LABS: CHLORIDE,CL 110 mmol/L (98-110); SODIUM,NA 139 mmol/L (136-146)
--- NOTE | 2017-11-13 22:24 | EDM.PDOC ---
ED HPI GENERAL MEDICAL PROBLEM - General Chief Complaint: General Stated Complaint: vomiting,fever Time Seen by Provider: 11/13/17 21:10 Source of Information: Reports: Patient History Limitations: Reports: No Limitations - History of Present Illness INITIAL COMMENTS - FREE TEXT/NARRATIVE: History of present illness: [26-year-old female comes in complaining of intermittent fevers, nausea vomiting and some amount of diarrhea.] Review of systems: As per history of present illness and below otherwise all systems reviewed and negative. Past medical history: As per history of present illness and as reviewed below otherwise noncontributory. Surgical history: As per history of present illness and as reviewed below otherwise noncontributory. Social history: No reported history of drug or alcohol abuse. Family history: As per history of present illness and as reviewed below otherwise noncontributory. Physical exam: HEENT: Atraumatic, normocephalic, pupils reactive, negative for conjunctival pallor or scleral icterus, mucous membranes moist, throat clear, neck supple, nontender, trachea midline. Lungs: Clear to auscultation, breath sounds equal bilaterally, chest nontender. Heart: S1S2, regular, negative for clicks, rubs, or JVD. Abdomen: Soft, nondistended, nontender. Negative for masses or hepatosplenomegaly. Negative for costovertebral tenderness. Pelvis: Stable nontender. Genitourinary: Deferred. Rectal: Deferred. Extremities: Atraumatic, negative for cords or calf pain. Neurovascular unremarkable. Neuro: Awake, alert, oriented. Cranial nerves II through XII unremarkable. Cerebellum unremarkable. Motor and sensory unremarkable throughout. Exam nonfocal. Global assessment is benign save the subjective complaint as noted in history of present illness Diagnostics: [CBC, CMP, influenza AB] Therapeutics: [] Impression: [Viral syndrome] Plan: [Zofran] Definitive disposition and diagnosis as appropriate pending reevaluation and review of above. headache Pain Score (Numeric/FACES): 6 - Related Data Allergies Allergy/AdvReac Type Severity Reaction Status Date / Time cefaclor [From Ceclor] Allergy Hives Verified 09/18/17 11:02 hydromorphone [From Dilaudid] Allergy Swelling Verified 09/18/17 11:02 Penicillins Allergy Anaphylactic Verified 09/18/17 11:02 Shock sumatriptan [From Imitrex] Allergy Hives Verified 09/18/17 11:02 verapamil Allergy Hives Verified 09/18/17 11:02 Home Meds: Home Meds Omeprazole 40 mg PO DAILY 06/22/17 [History] Sertraline [Zoloft] 150 mg PO BEDTIME 06/22/17 [History] Topiramate [Topamax] 20 mg PO BID 06/22/17 [History] busPIRone [Buspar] 0 mg PO TID 06/22/17 [History] traZODone HCl [Trazodone HCl] 100 mg PO BEDTIME PRN 06/22/17 [History] Albuterol [IJD: Albuterol HFA] 1 puff INH ASDIRECTED PRN 07/08/17 [History] Propranolol [Inderal] 60 mg PO BID 11/13/17 [History] Past Medical History HEENT History: Reports: None Other HEENT History: wears glasses Cardiovascular History: Reports: Arrhythmia Other Cardiovascular History: svt 4 years ago Respiratory History: Reports: Asthma Other Respiratory History: very mild, rarely uses inhaler Gastrointestinal History: Reports: GERD Genitourinary History: Reports: Renal Calculus Other Genitourinary History: PCOS 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: Other (See Below) Other OB/BYN History: PCOS, Ovarian cysts with rupture and hemorrhage 2 weeks ago Musculoskeletal History: Reports: Back Pain, Chronic Other Musculoskeletal History: Buldging disk L4 and L5 Neurological History: Reports: Migraines, Other (See Below) Other Neuro History: hx of restless leg syndrome, has bulging disc at L4-L5 Psychiatric History: Reports: Anxiety, Depression Other Psychiatric History: Insomnia Endocrine/Metabolic History: Reports: Obesity/BMI 30+ Hematologic History: Reports: Anemia Other Hematologic History: during Immunologic History: Reports: None Oncologic (Cancer) History: Reports: None - Infectious Disease History Infectious Disease History: Reports: Chicken Pox - Past Surgical History HEENT Surgical History: Reports: Eye Surgery, Oral Surgery Other HEENT Surgeries/Procedures: wisdom teeth, 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) Respiratory Surgical History: Reports: None GI Surgical History: Reports: None Female Surgical History: Reports: Oophorectomy, Tubal Ligation Endocrine Surgical History: Reports: None Neurological Surgical History: Reports: None Musculoskeletal Surgical History: Reports: None Oncologic Surgical History: Reports: None Dermatological Surgical History: Reports: None Social & Family History - Family History Family Medical History: Noncontributory HEENT: Reports: None Cardiac: Reports: Heart Failure Respiratory: Reports: None GI: Reports: None : Reports: None OBGYN: Reports: Other (See Below) Other OBGYN Family History: mother had hysterectomy from abnormal bleeding Musculoskeletal: Reports: None Neurological: Reports: None Psychiatric: Reports: None Endocrine/Metabolic: Reports: Diabetes, Type I Hematologic: Reports: None Immunologic: Reports: None Dermatologic: Reports: None Oncologic: Reports: Other (See Below) Other Oncologic Family History: cancer unknown - Tobacco Use Smoking Status *Q: Never Smoker Second Hand Smoke Exposure: No - Caffeine Use Caffeine Use: Reports: Soda Caffeine Use Comment: rarely - Recreational Drug Use Recreational Drug Use: No Drug Use in Last 12 Months: No ED ROS GENERAL - Review of Systems Review Of Systems: See Below (See history of present illness) ED EXAM, GENERAL - Physical Exam Exam: See Below (See history of present illness) Course - Vital Signs Last Recorded V/S: Last Vital Signs Temp 36.7 C 11/13/17 21:00 Pulse 86 11/13/17 21:00 Resp 18 11/13/17 21:00 BP 115/73 11/13/17 21:00 Pulse Ox 96 11/13/17 21:00 - Orders/Labs/Meds Labs: Laboratory Tests 11/13/17 11/13/17 Range/Units 21:44 21:44 WBC 10.78 (4.0-11.0) K/uL RBC 4.45 (4.30-5.90) M/uL Hgb 12.3 (12.0-16.0) g/dL Hct 37.9 (36.0-46.0) % MCV 85.2 (80.0-98.0) fL MCH 27.6 (27.0-32.0) pg MCHC 32.5 (31.0-37.0) g/dL RDW Std Deviation 43.1 (28.0-62.0) fl RDW Coeff of Jyotsna 14 (11.0-15.0) % Plt Count 277 (150-400) K/uL MPV 11.00 (7.40-12.00) fL Neut % (Auto) 59.0 (48.0-80.0) % Lymph % (Auto) 32.5 (16.0-40.0) % Dubois % (Auto) 5.9 (0.0-15.0) % Eos % (Auto) 2.2 (0.0-7.0) % Baso % (Auto) 0.4 (0.0-1.5) % Neut # (Auto) 6.4 H (1.4-5.7) K/uL Lymph # (Auto) 3.5 H (0.6-2.4) K/uL Dubois # (Auto) 0.6 (0.0-0.8) K/uL Eos # (Auto) 0.2 (0.0-0.7) K/uL Baso # (Auto) 0.0 (0.0-0.1) K/uL Nucleated RBC % 0.0 /100WBC Nucleated RBCs # 0 K/uL Sodium 139 (136-146) mmol/L Potassium 4.2 (3.5-5.1) mmol/L Chloride 110 (98-110) mmol/L Carbon Dioxide 19 L (21-31) mmol/L BUN 10 (6.0-23.0) mg/dL Creatinine 0.8 (0.6-1.5) mg/dL Est Cr Clr Drug Dosing 82.80 mL/min Estimated GFR (MDRD) > 60.0 ml/min Glucose 109 (60-110) mg/dL Calcium 9.3 (8.8-10.8) mg/dL Total Bilirubin 0.2 (0.1-1.5) mg/dL AST 11 (5-40) IU/L ALT 14 (8-54) IU/L Alkaline Phosphatase 79 (40-150) Total Protein 7.2 (6.0-8.0) g/dL Albumin 3.9 (3.5-5.0) g/dL Globulin 3.3 (2.0-3.5) g/dL Albumin/Globulin Ratio 1.2 L (1.3-2.8) Departure - Departure Time of Disposition: 22:23 Disposition: Home, Self-Care 01 Condition: Good Clinical Impression: Viral syndrome - Discharge Information Referrals: PCP,None [Primary Care Provider] - Additional Instructions: The following information is given to patients seen in the emergency department who are being discharged to home. This information is to outline your options for follow-up care. We provide all patients seen in our emergency department with a follow-up referral. The need for follow-up, as well as the timing and circumstances, are variable depending upon the specifics of your emergency department visit. If you don't have a primary care physician on staff, we will provide you with a referral. We always advise you to contact your personal physician following an emergency department visit to inform them of the circumstance of the visit and for follow-up with them and/or the need for any referrals to a consulting specialist. The emergency department will also refer you to a specialist when appropriate. This referral assures that you have the opportunity for follow-up care with a specialist. All of these measure are taken in an effort to provide you with optimal care, which includes your follow-up. Under all circumstances we always encourage you to contact your private physician who remains a resource for coordinating your care. When calling for follow-up care, please make the office aware that this follow-up is from your recent emergency room visit. If for any reason you are refused follow-up, please contact the [facility] Emergency Department at and asked to speak to the emergency department charge nurse. Take medication as directed Follow-up with PCP in 3-5 days Return to ED as needed as discussed
[2017-11-13 22:45] VITALS: BP 119/60
== END 2017-11-13 22:39 | disposition home or self-care (01) ==
LOC: MW.ED 20:49
DX: B34.9 Viral infection, unspecified (principal); J45.909 Unspecified asthma, uncomplicated; K21.9 Gastro-esophageal reflux disease without esophagitis; F32.9 Major depressive disorder, single episode, unspecified; Z79.899 Other long term (current) drug therapy; Z88.0 Allergy status to penicillin; Z88.5 Allergy status to narcotic agent; Z88.8 Allergy status to other drugs, medicaments and biological substances
CPT/HCPCS: 36415; 80053; 85025; 87804; 99283; 99284

== ENCOUNTER 2017-12-18 08:45 | Emergency (ER) | payer BC ==
[2017-12-18] MEDS ORDERED: Ketorolac 60 MG/2 ML SDV IM ONE (09:02)
[2017-12-18] MEDS ORDERED: Cyclobenzaprine 10 MG Tab PO ONE (09:02)
--- NOTE | 2017-12-18 09:12 | EDM.PDOC ---
ED HPI GENERAL MEDICAL PROBLEM - General Chief Complaint: Back Pain or Injury Stated Complaint: LOWER BACK PAIN Time Seen by Provider: 12/18/17 08:53 Source of Information: Reports: Patient History Limitations: Reports: No Limitations - History of Present Illness INITIAL COMMENTS - FREE TEXT/NARRATIVE: History of present illness: []3 days ago patient developed sciatica down her right lower extremity with numbness to her knee. Patient has a history of a bulging disc at L3 and L4 but has not had a flare in years. She denies any trauma or doing anything specific prior to the pain starting 3 days ago. He denies any incontinence Review of systems: As per history of present illness and below otherwise all systems reviewed and negative. Past medical history: As per history of present illness and as reviewed below otherwise noncontributory. Surgical history: As per history of present illness and as reviewed below otherwise noncontributory. Social history: No reported history of drug or alcohol abuse. Family history: As per history of present illness and as reviewed below otherwise noncontributory. Physical exam: General: Well developed, well nourished in NAD HEENT: Atraumatic, normocephalic, pupils reactive, negative for conjunctival pallor or scleral icterus, mucous membranes moist, throat clear, neck supple, nontender, trachea midline. Lungs: Clear to auscultation, breath sounds equal bilaterally, chest nontender. Heart: S1S2, regular, negative for clicks, rubs, or JVD. Abdomen: Soft, nondistended, nontender. Negative for masses or hepatosplenomegaly. Negative for costovertebral tenderness. Pelvis: Stable nontender. Genitourinary: Deferred. Rectal: Deferred. Extremities: Atraumatic, negative for cords or calf pain. Neurovascular unremarkable. Neuro: Awake, alert, oriented. Cranial nerves II through XII unremarkable. Cerebellum unremarkable. Motor and sensory unremarkable throughout. Exam nonfocal. Straight leg raise is negative reflexes are intact Diagnostics: [] Therapeutics: []Flexeril Toradol Impression: [] low back pain with right-sided sciatica Sciatica Plan: []Flexeril and tramadol for pain follow-up with PMD Definitive disposition and diagnosis as appropriate pending reevaluation and review of above. lower back Pain Score (Numeric/FACES): 9 - Related Data Allergies Allergy/AdvReac Type Severity Reaction Status Date / Time cefaclor [From Ceclor] Allergy Hives Verified 12/18/17 08:55 hydromorphone [From Dilaudid] Allergy Swelling Verified 12/18/17 08:55 Penicillins Allergy Anaphylactic Verified 12/18/17 08:55 Shock Sulfa (Sulfonamide Allergy Anaphylactic Verified 12/18/17 08:55 Antibiotics) Shock sumatriptan [From Imitrex] Allergy Hives Verified 12/18/17 08:55 verapamil Allergy Hives Verified 12/18/17 08:55 Home Meds: Home Meds Cyclobenzaprine [Flexeril] 10 mg PO BID PRN #12 tab 12/18/17 [Rx] Omeprazole 40 mg PO DAILY 12/18/17 [History] Propranolol HCl [Inderal LA] 60 mg PO DAILY 12/18/17 [History] Sertraline [Zoloft] 1.5 tab PO DAILY 12/18/17 [History] Topiramate [Topamax] 25 mg PO BID 12/18/17 [History] busPIRone HCl [Buspirone HCl] 10 gm PO TID 12/18/17 [History] traMADol HCl [Tramadol HCl] 50 mg PO Q6H PRN #16 tablet 12/18/17 [Rx] Past Medical History HEENT History: Reports: None Other HEENT History: wears glasses Cardiovascular History: Reports: Arrhythmia Other Cardiovascular History: svt 4 years ago Respiratory History: Reports: Asthma Other Respiratory History: very mild, rarely uses inhaler Gastrointestinal History: Reports: GERD Genitourinary History: Reports: Renal Calculus Other Genitourinary History: PCOS 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 (See Below) Other OB/BYN History: PCOS, Ovarian cysts with rupture and hemorrhage 2 weeks ago Musculoskeletal History: Reports: Back Pain, Chronic Other Musculoskeletal History: Buldging disk L4 and L5 Neurological History: Reports: Migraines, Other (See Below) Other Neuro History: hx of restless leg syndrome, has bulging disc at L4-L5 Psychiatric History: Reports: Anxiety, Depression Other Psychiatric History: Insomnia Endocrine/Metabolic History: Reports: Obesity/BMI 30+ Hematologic History: Reports: Anemia Other Hematologic History: during Immunologic History: Reports: None Oncologic (Cancer) History: Reports: None - Infectious Disease History Infectious Disease History: Reports: Chicken Pox - Past Surgical History HEENT Surgical History: Reports: Eye Surgery, Oral Surgery Other HEENT Surgeries/Procedures: wisdom teeth, 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) Respiratory Surgical History: Reports: None GI Surgical History: Reports: None Female Surgical History: Reports: Oophorectomy, Tubal Ligation Endocrine Surgical History: Reports: None Neurological Surgical History: Reports: None Musculoskeletal Surgical History: Reports: None Oncologic Surgical History: Reports: None Dermatological Surgical History: Reports: None Social & Family History - Family History Family Medical History: Noncontributory HEENT: Reports: None Cardiac: Reports: Heart Failure Respiratory: Reports: None GI: Reports: None : Reports: None OBGYN: Reports: Other (See Below) Other OBGYN Family History: mother had hysterectomy from abnormal bleeding Musculoskeletal: Reports: None Neurological: Reports: None Psychiatric: Reports: None Endocrine/Metabolic: Reports: Diabetes, Type I Hematologic: Reports: None Immunologic: Reports: None Dermatologic: Reports: None Oncologic: Reports: Other (See Below) Other Oncologic Family History: cancer unknown - Tobacco Use Smoking Status *Q: Never Smoker Second Hand Smoke Exposure: No - Caffeine Use Caffeine Use: Reports: Soda Caffeine Use Comment: rarely - Recreational Drug Use Recreational Drug Use: No Drug Use in Last 12 Months: No ED ROS GENERAL - Review of Systems Review Of Systems: See Below (See history of present illness) ED EXAM,LOWER BACK PAIN/INJURY - Physical Exam Exam: See Below (See history of present illness) Course - Vital Signs Last Recorded V/S: Last Vital Signs Temp 97.8 F 12/18/17 08:55 Pulse 82 12/18/17 08:55 Resp 18 12/18/17 08:55 BP 105/76 12/18/17 08:55 Pulse Ox 95 12/18/17 08:55 - Orders/Labs/Meds Meds: Medications Discontinued Medications Generic Name Dose Route Start Last Admin Trade Name Freq PRN Reason Stop Dose Admin Cyclobenzaprine HCl 10 mg 12/18/17 09:02 12/18/17 09:13 Flexeril PO 12/18/17 09:03 10 mg ONETIME ONE Administration Ketorolac Tromethamine 60 mg 12/18/17 09:02 12/18/17 09:13 Toradol IM 12/18/17 09:03 60 mg ONETIME ONE Administration Departure - Departure Time of Disposition: 09:30 Disposition: Home, Self-Care 01 Condition: Good Clinical Impression: Right sided sciatica - Discharge Information Prescriptions: Cyclobenzaprine [Flexeril] 10 mg PO BID PRN #12 tab PRN Reason: Pain traMADol HCl [Tramadol HCl] 50 mg PO Q6H PRN #16 tablet PRN Reason: Pain Referrals: PCP,None [Primary Care Provider] - Forms: ED Department Discharge Additional Instructions: The following information is given to patients seen in the emergency department who are being discharged to home. This information is to outline your options for follow-up care. We provide all patients seen in our emergency department with a follow-up referral. The need for follow-up, as well as the timing and circumstances, are variable depending upon the specifics of your emergency department visit. If you don't have a primary care physician on staff, we will provide you with a referral. We always advise you to contact your personal physician following an emergency department visit to inform them of the circumstance of the visit and for follow-up with them and/or the need for any referrals to a consulting specialist. The emergency department will also refer you to a specialist when appropriate. This referral assures that you have the opportunity for follow-up care with a specialist. All of these measure are taken in an effort to provide you with optimal care, which includes your follow-up. Under all circumstances we always encourage you to contact your private physician who remains a resource for coordinating your care. When calling for follow-up care, please make the office aware that this follow-up is from your recent emergency room visit. If for any reason you are refused follow-up, please contact the [facility] Emergency Department at and asked to speak to the emergency department charge nurse. Tramadol Flexeril as directed follow-up with PMD return if symptoms worsen or change [facility] [place] [id number]
[2017-12-18 10:09] VITALS: BP 109/64
== END 2017-12-18 10:05 | disposition home or self-care (01) ==
LOC: MW.ED 08:45
DX: M54.41 Lumbago with sciatica, right side (principal); K21.9 Gastro-esophageal reflux disease without esophagitis; F32.9 Major depressive disorder, single episode, unspecified; Z79.899 Other long term (current) drug therapy; Z88.2 Allergy status to sulfonamides; Z88.8 Allergy status to other drugs, medicaments and biological substances; Z88.0 Allergy status to penicillin; Z88.5 Allergy status to narcotic agent
CPT/HCPCS: 96372; 99283; A9270; J1885; 99282

== ENCOUNTER 2018-01-07 12:05 | Emergency (ER) | payer BC ==
[2018-01-07] MEDS ORDERED: Sodium Chloride 0.9% 10 ML Syringe FLUSH PRN (12:10)
[2018-01-07] MEDS ORDERED: Sodium Chloride 0.9% 2.5 ML Syringe FLUSH PRN (12:10)
--- NOTE | 2018-01-07 12:14 | EDM.PDOC ---
ED HPI GENERAL MEDICAL PROBLEM - General Stated Complaint: AMB Time Seen by Provider: 01/07/18 12:09 - History of Present Illness INITIAL COMMENTS - FREE TEXT/NARRATIVE: HISTORY AND PHYSICAL: History of present illness: The patient is a 27-year-old female with a history of SVT for which she was treated by a family physician back in [place] and is only recently moved here and has lived in the area since June, 7 months ago. The patient says she has had 10 episodes of SVT in the past and they always present similarly where she feels lightheaded like she's going to pass out she feels her heart is racing and then she has a syncopal event. The patient has never been followed by a groundskeeper porter even back home in [place]. She has been on propranolol for the last several years and has been reasonably well controlled. She has only had to be converted with adenosine once. The patient said that she was on propranolol for many years for migraine headache control and when she had a child she came off the medication and that's when her SVT surfaced so they placed her back on the propranolol after delivery. She has a bilateral tubal ligation and denies today. The patient said today's episode was different than all of her prior episodes in that she did not pass out and she came out of the rhythm. She did feel the racing fast heart but was awake alert and was able to make a phone call to arrange someone to picket labor union her children. She did not fall to the ground and she denies that she passed out. She is not nauseated currently has no chest pain abdominal pain nausea and has had no recent illnesses. Patient says she's been eating and drinking normally and has no focal pain in any location nor any numbness weakness or sensory changes throughout her body. On arrival EMS did not notice that she was in a rapid or irregular rhythm. The patient says that the episode lasted anywhere from 4-6 minutes total. The patient says that currently she just feels very tired which is typical after one of her episodes. Review of systems: As per history of present illness and below otherwise all systems reviewed and negative. Past medical history: As per history of present illness and as reviewed below otherwise noncontributory. Surgical history: As per history of present illness and as reviewed below otherwise noncontributory. Social history: No reported history of drug or alcohol abuse. Family history: As per history of present illness and as reviewed below otherwise noncontributory. Physical exam: Gen.: Well-developed mildly overweight female who is nontoxic and speaking clearly in the ED. Vital signs are noted by me and on the monitor she is in a normal sinus rhythm with rate in the 70s to 80s. HEENT: Atraumatic, normocephalic, negative for conjunctival pallor or scleral icterus, mucous membranes moist, throat clear, neck supple, nontender, trachea midline. Lungs: Clear to auscultation, breath sounds equal bilaterally, chest nontender. Heart: S1S2, regular rate and rhythm no overt murmurs Abdomen: Soft, nondistended, nontender. Negative for masses or hepatosplenomegaly. NABS Pelvis: Stable nontender. Genitourinary: Deferred. Rectal: Deferred. Extremities: Atraumatic, negative for cords or calf pain. Neurovascular unremarkable. No pedal edema or leg asymmetry Neuro: Awake, alert, oriented. Cranial nerves II through XII unremarkable. Cerebellum unremarkable. Motor and sensory unremarkable throughout. Exam nonfocal. 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 Spain at [phone] and he is aware of her and his nurse will contact our patient for a follow-up appointment with him. Patient was advised of this conversation Patient had told nursing that while she's been here she has had feelings like her heart is going fast but when the nurse correlates that with the monitor for heart rate is in the high 70s to 80s. I reassured her that everything is within normal limits here and that she will get follow-up with her groundskeeper porter. She is advised and reasons to return Impression: Episode of palpitations and lightheadedness, history of SVT, spontaneous conversion prior to arrival Definitive disposition and diagnosis as appropriate pending reevaluation and review of above. - Related Data Allergies Allergy/AdvReac Type Severity Reaction Status Date / Time cefaclor [From Ceclor] Allergy Hives Verified 12/18/17 08:55 hydromorphone [From Dilaudid] Allergy Swelling Verified 12/18/17 08:55 Penicillins Allergy Anaphylactic Verified 12/18/17 08:55 Shock Sulfa (Sulfonamide Allergy Anaphylactic Verified 12/18/17 08:55 Antibiotics) Shock sumatriptan [From Imitrex] Allergy Hives Verified 12/18/17 08:55 verapamil Allergy Hives Verified 12/18/17 08:55 Home Meds: Home Meds Cyclobenzaprine [Flexeril] 10 mg PO BID PRN #12 tab 12/18/17 [Rx] Omeprazole 40 mg PO DAILY 12/18/17 [History] Propranolol HCl [Inderal LA] 60 mg PO DAILY 12/18/17 [History] Sertraline [Zoloft] 1.5 tab PO DAILY 12/18/17 [History] Topiramate [Topamax] 25 mg PO BID 12/18/17 [History] busPIRone HCl [Buspirone HCl] 10 gm PO TID 12/18/17 [History] traMADol HCl [Tramadol HCl] 50 mg PO Q6H PRN #16 tablet 12/18/17 [Rx] Past Medical History HEENT History: Reports: None Other HEENT History: wears glasses Cardiovascular History: Reports: Arrhythmia Other Cardiovascular History: svt 4 years ago Respiratory History: Reports: Asthma Other Respiratory History: very mild, rarely uses inhaler Gastrointestinal History: Reports: GERD Genitourinary History: Reports: Renal Calculus Other Genitourinary History: PCOS CAN STACKER History: Reports: Other (See Below) Other OB/BYN History: PCOS, Ovarian cysts with rupture and hemorrhage 2 weeks ago Musculoskeletal History: Reports: Back Pain, Chronic Other Musculoskeletal History: Buldging disk L4 and L5 Neurological History: Reports: Migraines, Other (See Below) Other Neuro History: hx of restless leg syndrome, has bulging disc at L4-L5 Psychiatric History: Reports: Anxiety, Depression Other Psychiatric History: Insomnia Endocrine/Metabolic History: Reports: Obesity/BMI 30+ Hematologic History: Reports: Anemia Other Hematologic History: during Immunologic History: Reports: None Oncologic (Cancer) History: Reports: None - Infectious Disease History Infectious Disease History: Reports: Chicken Pox - Past Surgical History HEENT Surgical History: Reports: Eye Surgery, Oral Surgery Other HEENT Surgeries/Procedures: wisdom teeth, 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) Respiratory Surgical History: Reports: None GI Surgical History: Reports: None Female Surgical History: Reports: Oophorectomy, Tubal Ligation Endocrine Surgical History: Reports: None Neurological Surgical History: Reports: None Musculoskeletal Surgical History: Reports: None Oncologic Surgical History: Reports: None Dermatological Surgical History: Reports: None Social & Family History - Family History Family Medical History: Noncontributory HEENT: Reports: None Cardiac: Reports: Heart Failure Respiratory: Reports: None GI: Reports: None : Reports: None OBGYN: Reports: Other (See Below) Other OBGYN Family History: mother had hysterectomy from abnormal bleeding Musculoskeletal: Reports: None Neurological: Reports: None Psychiatric: Reports: None Endocrine/Metabolic: Reports: Diabetes, Type I Hematologic: Reports: None Immunologic: Reports: None Dermatologic: Reports: None Oncologic: Reports: Other (See Below) Other Oncologic Family History: cancer unknown - Tobacco Use Smoking Status *Q: Never Smoker Second Hand Smoke Exposure: No - Caffeine Use Caffeine Use: Reports: Soda Caffeine Use Comment: rarely - Recreational Drug Use Recreational Drug Use: No Drug Use in Last 12 Months: No ED ROS GENERAL - Review of Systems Review Of Systems: ROS reveals no pertinent complaints other than HPI. ED EXAM, GENERAL - Physical Exam Exam: See Below (See dictation) Course - Vital Signs Last Recorded V/S: Last Vital Signs Temp 36.4 C 01/07/18 12:10 Pulse 79 01/07/18 12:45 Resp 18 01/07/18 12:45 BP 116/80 01/07/18 12:45 Pulse Ox 94 L 01/07/18 12:45 - Orders/Labs/Meds Orders: Active Orders 24 hr Category Date Time Status Cardiac Monitoring [RC] . DIRECTED Care 01/07/18 12:09 Active EKG Documentation Completion [RC] STAT Care 01/07/18 12:09 Active Oxygen Therapy, ED [RC] ASDIRECTED Care 01/07/18 12:09 Active Pulse Oximetry [RC] ASDIRECTED Care 01/07/18 12:09 Active Sodium Chloride 0.9% [Saline Flush] Med 01/07/18 12:10 Active 10 ml FLUSH ASDIRECTED PRN Sodium Chloride 0.9% [Saline Flush] Med 01/07/18 12:10 Active 2.5 ml FLUSH ASDIRECTED PRN Saline Lock Insert [OM.PC] Stat Oth 01/07/18 12:09 Ordered Medication Orders Sodium Chloride (Saline Flush) 10 ml FLUSH ASDIRECTED PRN PRN Reason: Keep Vein Open Sodium Chloride (Saline Flush) 2.5 ml FLUSH ASDIRECTED PRN PRN Reason: Keep Vein Open Labs: Laboratory Tests 01/07/18 01/07/18 Range/Units 12:25 12:25 WBC 7.96 (4.0-11.0) K/uL RBC 4.53 (4.30-5.90) M/uL Hgb 12.6 (12.0-16.0) g/dL Hct 37.7 (36.0-46.0) % MCV 83.2 (80.0-98.0) fL MCH 27.8 (27.0-32.0) pg MCHC 33.4 (31.0-37.0) g/dL RDW Std Deviation 41.7 (28.0-62.0) fl RDW Coeff of Jyotsna 14 (11.0-15.0) % Plt Count 278 (150-400) K/uL MPV 11.20 (7.40-12.00) fL Neut % (Auto) 60.1 (48.0-80.0) % Lymph % (Auto) 31.8 (16.0-40.0) % [place] % (Auto) 4.8 (0.0-15.0) % Eos % (Auto) 2.4 (0.0-7.0) % Baso % (Auto) 0.9 (0.0-1.5) % Neut # (Auto) 4.8 (1.4-5.7) K/uL Lymph # (Auto) 2.5 H (0.6-2.4) K/uL [place] # (Auto) 0.4 (0.0-0.8) K/uL Eos # (Auto) 0.2 (0.0-0.7) K/uL Baso # (Auto) 0.1 (0.0-0.1) K/uL Nucleated RBC % 0.0 /100WBC Nucleated RBCs # 0 K/uL Sodium 138 (136-145) mmol/L Potassium 3.7 (3.5-5.1) mmol/L Chloride 105 (98-107) mmol/L Carbon Dioxide 22.8 (21.0-32.0) mmol/L BUN 8 (7.0-18.0) mg/dL Creatinine 0.8 (0.6-1.0) mg/dL Est Cr Clr Drug Dosing TNP Estimated GFR (MDRD) > 60.0 ml/min Glucose 95 (74-106) mg/dL Calcium 8.9 (8.5-10.1) mg/dL Magnesium 1.5 (1.5-2.0) mg/dL Total Bilirubin 0.3 (0.2-1.0) mg/dL AST 15 (15-37) U/L ALT 19 (14-63) U/L Alkaline Phosphatase 100 (46-116) U/L Troponin I < 0.050 (0.000-0.056) ng/mL Total Protein 7.3 (6.4-8.2) g/dL Albumin 3.5 (3.4-5.0) g/dL Globulin 3.8 H (2.0-3.5) g/dL Albumin/Globulin Ratio 0.9 L (1.3-2.8) TSH 3rd Generation 2.08 (0.36-3.74) uIU/mL Meds: Medications Generic Name Dose Route Start Last Admin Trade Name Freq PRN Reason Stop Dose Admin Sodium Chloride 10 ml 01/07/18 12:10 Saline Flush FLUSH ASDIRECTED PRN Keep Vein Open Sodium Chloride 2.5 ml 01/07/18 12:10 Saline Flush FLUSH ASDIRECTED PRN Keep Vein Open Departure - Departure Time of Disposition: 13:15 Disposition: Home, Self-Care 01 Condition: Good Clinical Impression: H/O paroxysmal supraventricular tachycardia, Lightheadedness, Palpitations - Discharge Information Referrals: PCP,None [Primary Care Provider] - Additional Instructions: The following information is given to patients seen in the emergency department who are being discharged to home. This information is to outline your options for follow-up care. We provide all patients seen in our emergency department with a follow-up referral. The need for follow-up, as well as the timing and circumstances, are variable depending upon the specifics of your emergency department visit. If you don't have a primary care physician on staff, we will provide you with a referral. We always advise you to contact your personal physician following an emergency department visit to inform them of the circumstance of the visit and for follow-up with them and/or the need for any referrals to a consulting specialist. The emergency department will also refer you to a specialist when appropriate. This referral assures that you have the opportunity for followup care with a specialist. All of these measure are taken in an effort to provide you with optimal care, which includes your followup. Under all circumstances we always encourage you to contact your private physician who remains a resource for coordinating your care. When calling for followup care, please make the office aware that this follow-up is from your recent emergency room visit. If for any reason you are refused follow-up, please contact the [facility] emergency department at and ask to speak to the emergency department charge nurse. [facility] Primary care- Internal Medicine and Family [address] [address] Please rest and return to ER as needed and as discussed. Please continue your home medication and the nurse from the clinic will be contacting you to get an appointment with Dr. Spain our groundskeeper porter. - My Orders Last 24 Hours: My Active Orders 01/07/18 12:09 Cardiac Monitoring [RC] . DIRECTED EKG Documentation Completion [RC] STAT Oxygen Therapy, ED [RC] ASDIRECTED Pulse Oximetry [RC] ASDIRECTED Saline Lock Insert [OM.PC] Stat 01/07/18 12:10 Sodium Chloride 0.9% [Saline Flush] 10 ml FLUSH ASDIRECTED PRN Sodium Chloride 0.9% [Saline Flush] 2.5 ml FLUSH ASDIRECTED PRN - Assessment/Plan Last 24 Hours: My Active Orders 01/07/18 12:09 Cardiac Monitoring [RC] . DIRECTED EKG Documentation Completion [RC] STAT Oxygen Therapy, ED [RC] ASDIRECTED Pulse Oximetry [RC] ASDIRECTED Saline Lock Insert [OM.PC] Stat 01/07/18 12:10 Sodium Chloride 0.9% [Saline Flush] 10 ml FLUSH ASDIRECTED PRN Sodium Chloride 0.9% [Saline Flush] 2.5 ml FLUSH ASDIRECTED PRN
[2018-01-07 13:06] LABS: CHLORIDE,CL 105 mmol/L (98-107); SODIUM,NA 138 mmol/L (136-145)
--- NOTE | 2018-01-07 13:11 | CR ---
EXAMINATION: Portable chest radiograph. HISTORY: Shortness of breath. FINDINGS: The trachea is midline. The cardiomediastinal silhouette is within normal limits. No pulmonary infilt rates, effusions or pneumothorax. Osseous structures appear unremarkable. IMPRESSION: No acute cardiopulmonary process.
[2018-01-07 13:34] VITALS: BP 107/57
== END 2018-01-07 13:28 | disposition home or self-care (01) ==
LOC: MW.ED 12:05
DX: R00.2 Palpitations (principal); R42 Dizziness and giddiness; Z88.1 Allergy status to other antibiotic agents; Z88.5 Allergy status to narcotic agent; Z88.2 Allergy status to sulfonamides; Z88.8 Allergy status to other drugs, medicaments and biological substances; Z79.899 Other long term (current) drug therapy
CPT/HCPCS: 36415; 71045; 71045-26; 80053; 83735; 84443; 84484; 85025; 99284; 99285-25

== ENCOUNTER 2018-05-05 05:57 | Emergency (ER) | payer SELFPAY ==
[2018-05-05] MEDS ORDERED: Sodium Chloride 0.9% 10 ML Syringe FLUSH PRN (06:16)
[2018-05-05] MEDS ORDERED: Sodium Chloride 0.9% 2.5 ML Syringe FLUSH PRN (06:16)
[2018-05-05] MEDS ORDERED: fentaNYL 100 MCG/2 ML SDV IVPUSH ONE (06:18)
[2018-05-05] MEDS ORDERED: Ondansetron 4 MG/2 ML SDV IVPUSH ONE (06:18)
[2018-05-05] MEDS ORDERED: Sodium Chloride 0.9% 1,000 ML IV ONE (06:18)
[2018-05-05] MEDS ORDERED: Morphine 2 MG/ML Syringe IVPUSH ONE (06:18)
--- NOTE | 2018-05-05 06:24 | EDM.PDOC ---
<Smita Tejeda - Last Filed: 05/05/18 06:43> ED HPI GENERAL MEDICAL PROBLEM - General Chief Complaint: Abdominal Pain Time Seen by Provider: 05/05/18 06:10 - History of Present Illness INITIAL COMMENTS - FREE TEXT/NARRATIVE: HISTORY AND PHYSICAL: History of present illness: The patient is a 27-year-old female with a history of right lateral tubal ligation, right ovariectomy for ruptured cyst, PCO S, and a cervical ablation for which she has not had periods since that was performed and who presents with complaints of 3 days of left lower quadrant pain that feels like a ruptured cyst. The patient states that she has had many ovarian cysts in the past and cyst that had ruptured and this feels very similarly and says that she usually "rides out the pain" at home but this was more intense. She says that she had a ruptured cyst in the past that caused internal bleeding and this feels similarly. She has had nausea but no vomiting no diarrhea and no right- sided abdominal pain. She has no chest pain or shortness of breath no fevers or chills and no urinary complaints she's had no vaginal bleeding. The patient has only tried one dose of [id number] meds in the last 24 hours and says that it is not working. The patient saw Dr. Pollock in the past for a ruptured ovarian cyst for which she had to have surgery and followed up in the postop period but has not seen any provider since that time. Prior to 3 days ago patient was eating and drinking normally and she denies any GI history and has regular bowel movements without black or bloody stools and no history of IBS or diverticulitis. The patient also has a history of kidney stones and says this is not the type of pain that she has had in the past with her kidney stones. The patient is very adamant with me about her concerns about an ovarian cyst. Review of systems: As per history of present illness and below otherwise all systems reviewed and negative. Past medical history: As per history of present illness and as reviewed below otherwise noncontributory. Surgical history: As per history of present illness and as reviewed below otherwise noncontributory. Social history: No reported history of drug or alcohol abuse. Family history: As per history of present illness and as reviewed below otherwise noncontributory. Physical exam: General: Well-developed well-nourished overweight female who is nontoxic and moves easily in the ED without distress. Vital signs are noted by me HEENT: Atraumatic, normocephalic, negative for conjunctival pallor or scleral icterus, mucous membranes moist, throat clear, neck supple, nontender, trachea midline. Lungs: Clear to auscultation, breath sounds equal bilaterally, chest nontender. Heart: S1S2, regular rate and rhythm no overt murmurs Abdomen: Soft, nondistended, bowel sounds are normoactive and there is no tympany. There is tenderness in the left lower quadrant without rebound or guarding and the tenderness on palpation is very mild. Negative for masses or hepatosplenomegaly. Negative for costovertebral tenderness. Pelvis: Stable nontender. Genitourinary: Deferred. Rectal: Deferred. Extremities: Atraumatic, negative for cords or calf pain. Neurovascular unremarkable. Neuro: Awake, alert, oriented. Cranial nerves II through XII unremarkable. Cerebellum unremarkable. Motor and sensory unremarkable throughout. Exam nonfocal. Diagnostics: CBC CMP hCG UA pelvic ultrasound Therapeutics: IV fluids Fentanyl Zofran 0700: Case is endorsed to Dr. Rosario to follow-up the lab tests and ultrasound results and disposition the patient. Impression: Left lower quadrant pain Definitive disposition and diagnosis as appropriate pending reevaluation and review of above. Left lower abdomen Pain Score (Numeric/FACES): 7 - Related Data Allergies Allergy/AdvReac Type Severity Reaction Status Date / Time cefaclor [From Ceclor] Allergy Hives Verified 05/05/18 06:10 hydromorphone [From Dilaudid] Allergy Swelling Verified 05/05/18 06:10 Penicillins Allergy Anaphylactic Verified 05/05/18 06:10 Shock Sulfa (Sulfonamide Allergy Anaphylactic Verified 05/05/18 06:10 Antibiotics) Shock sumatriptan [From Imitrex] Allergy Hives Verified 05/05/18 06:10 verapamil Allergy Hives Verified 05/05/18 06:10 Home Meds: Home Meds Omeprazole 40 mg PO DAILY 12/18/17 [History] Propranolol HCl [Inderal LA] 60 mg PO BID 12/18/17 [History] Sertraline [Zoloft] 125 mg PO DAILY 12/18/17 [History] Topiramate [Topamax] 25 mg PO BID 12/18/17 [History] busPIRone HCl [Buspirone HCl] 10 gm PO TID 12/18/17 [History] Past Medical History HEENT History: Reports: None Other HEENT History: wears glasses Cardiovascular History: Reports: Arrhythmia Other Cardiovascular History: svt 4 years ago Respiratory History: Reports: Asthma Other Respiratory History: very mild, rarely uses inhaler Gastrointestinal History: Reports: GERD Genitourinary History: Reports: Renal Calculus Other Genitourinary History: PCOS PHERESIS NURSE History: Reports: Other (See Below) Other OB/BYN History: PCOS, Ovarian cysts with rupture and hemorrhage 2 weeks ago Musculoskeletal History: Reports: Back Pain, Chronic Other Musculoskeletal History: Buldging disk L4 and L5 Neurological History: Reports: Migraines, Other (See Below) Other Neuro History: hx of restless leg syndrome, has bulging disc at L4-L5 Psychiatric History: Reports: Anxiety, Depression Other Psychiatric History: Insomnia Endocrine/Metabolic History: Reports: Obesity/BMI 30+ Hematologic History: Reports: Anemia Other Hematologic History: during Immunologic History: Reports: None Oncologic (Cancer) History: Reports: None - Infectious Disease History Infectious Disease History: Reports: Chicken Pox - Past Surgical History HEENT Surgical History: Reports: Eye Surgery, Oral Surgery Other HEENT Surgeries/Procedures: wisdom teeth, 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) Respiratory Surgical History: Reports: None GI Surgical History: Reports: None Female Surgical History: Reports: Oophorectomy, Tubal Ligation Endocrine Surgical History: Reports: None Neurological Surgical History: Reports: None Musculoskeletal Surgical History: Reports: None Oncologic Surgical History: Reports: None Dermatological Surgical History: Reports: None Social & Family History - Family History Family Medical History: Noncontributory HEENT: Reports: None Cardiac: Reports: Heart Failure Respiratory: Reports: None GI: Reports: None : Reports: None OBGYN: Reports: Other (See Below) Other OBGYN Family History: mother had hysterectomy from abnormal bleeding Musculoskeletal: Reports: None Neurological: Reports: None Psychiatric: Reports: None Endocrine/Metabolic: Reports: Diabetes, Type I Hematologic: Reports: None Immunologic: Reports: None Dermatologic: Reports: None Oncologic: Reports: Other (See Below) Other Oncologic Family History: cancer unknown - Caffeine Use Caffeine Use: Reports: Soda Caffeine Use Comment: rarely ED ROS GENERAL - Review of Systems Review Of Systems: ROS reveals no pertinent complaints other than HPI. ED EXAM, GENERAL - Physical Exam Exam: See Below (see dictation) Course - Vital Signs Last Recorded V/S: Last Vital Signs Temp 97.7 F 05/05/18 07:46 Pulse 62 05/05/18 07:46 Resp 20 05/05/18 07:46 BP 103/44 L 05/05/18 07:46 Pulse Ox 100 05/05/18 07:46 - Orders/Labs/Meds Orders: Active Orders 24 hr Category Date Time Status Pelvis Non OB Comp [US] Stat Exams 05/05/18 06:17 Taken UA W/MICROSCOPIC [URIN] Stat Lab 05/05/18 06:20 Ordered Sodium Chloride 0.9% [Saline Flush] Med 05/05/18 06:16 Active 10 ml FLUSH ASDIRECTED PRN Sodium Chloride 0.9% [Saline Flush] Med 05/05/18 06:16 Active 2.5 ml FLUSH ASDIRECTED PRN Saline Lock Insert [OM.PC] Stat Oth 05/05/18 06:16 Ordered Medication Orders Sodium Chloride (Saline Flush) 10 ml FLUSH ASDIRECTED PRN PRN Reason: Keep Vein Open Sodium Chloride (Saline Flush) 2.5 ml FLUSH ASDIRECTED PRN PRN Reason: Keep Vein Open Labs: Laboratory Tests 05/05/18 05/05/18 05/05/18 Range/Units 06:20 06:52 06:52 WBC 8.65 (4.0-11.0) K/uL RBC 4.29 L (4.30-5.90) M/uL Hgb 11.9 L (12.0-16.0) g/dL Hct 36.1 (36.0-46.0) % MCV 84.1 (80.0-98.0) fL MCH 27.7 (27.0-32.0) pg MCHC 33.0 (31.0-37.0) g/dL RDW Std Deviation 40.7 (28.0-62.0) fl RDW Coeff of Jyotsna 14 (11.0-15.0) % Plt Count 314 (150-400) K/uL MPV 10.60 (7.40-12.00) fL Neut % (Auto) 47.8 L (48.0-80.0) % Lymph % (Auto) 41.0 H (16.0-40.0) % Kinney % (Auto) 8.3 (0.0-15.0) % Eos % (Auto) 2.4 (0.0-7.0) % Baso % (Auto) 0.5 (0.0-1.5) % Neut # (Auto) 4.1 (1.4-5.7) K/uL Lymph # (Auto) 3.6 H (0.6-2.4) K/uL Kinney # (Auto) 0.7 (0.0-0.8) K/uL Eos # (Auto) 0.2 (0.0-0.7) K/uL Baso # (Auto) 0.0 (0.0-0.1) K/uL Nucleated RBC % 0.0 /100WBC Nucleated RBCs # 0 K/uL Sodium 142 (136-145) mmol/L Potassium 3.8 (3.5-5.1) mmol/L Chloride 109 H (98-107) mmol/L Carbon Dioxide 21.8 (21.0-32.0) mmol/L BUN 18 (7.0-18.0) mg/dL Creatinine 0.9 (0.6-1.0) mg/dL Est Cr Clr Drug Dosing 72.95 mL/min Estimated GFR (MDRD) > 60.0 ml/min Glucose 116 H (74-106) mg/dL Calcium 8.1 L (8.5-10.1) mg/dL Total Bilirubin 0.2 (0.2-1.0) mg/dL AST 10 L (15-37) IU/L ALT 21 (14-63) IU/L Alkaline Phosphatase 93 (46-116) U/L Total Protein 6.7 (6.4-8.2) g/dL Albumin 3.2 L (3.4-5.0) g/dL Globulin 3.5 (2.0-3.5) g/dL Albumin/Globulin Ratio 0.9 L (1.3-2.8) HCG, Qual (NEG) Urine Color YELLOW Urine Appearance CLEAR Urine pH 5.5 (5.0-8.0) Ur Specific [place] >= 1.030 (1.001-1.035) Urine Protein NEGATIVE (NEGATIVE) mg/dL Urine Glucose (UA) NEGATIVE (NEGATIVE) mg/dL Urine Ketones NEGATIVE (NEGATIVE) mg/dL Urine Occult Blood NEGATIVE (NEGATIVE) Urine Nitrite NEGATIVE (NEGATIVE) Urine Bilirubin NEGATIVE (NEGATIVE) Urine Urobilinogen 0.2 (<2.0) EU/dL Ur Leukocyte Esterase NEGATIVE (NEGATIVE) Urine RBC NONE SEEN (0-2/HPF) Urine WBC 0-2 (0-5/HPF) Ur Epithelial Cells RARE (NONE-FEW) Amorphous Sediment HEAVY (NEGATIVE) Urine Bacteria NOT SEEN (NEGATIVE) Urine Mucus NOT SEEN (NONE-MOD) 05/05/18 Range/Units 06:52 WBC (4.0-11.0) K/uL RBC (4.30-5.90) M/uL Hgb (12.0-16.0) g/dL Hct (36.0-46.0) % MCV (80.0-98.0) fL MCH (27.0-32.0) pg MCHC (31.0-37.0) g/dL RDW Std Deviation (28.0-62.0) fl RDW Coeff of Jyotsna (11.0-15.0) % Plt Count (150-400) K/uL MPV (7.40-12.00) fL Neut % (Auto) (48.0-80.0) % Lymph % (Auto) (16.0-40.0) % Kinney % (Auto) (0.0-15.0) % Eos % (Auto) (0.0-7.0) % Baso % (Auto) (0.0-1.5) % Neut # (Auto) (1.4-5.7) K/uL Lymph # (Auto) (0.6-2.4) K/uL Kinney # (Auto) (0.0-0.8) K/uL Eos # (Auto) (0.0-0.7) K/uL Baso # (Auto) (0.0-0.1) K/uL Nucleated RBC % /100WBC Nucleated RBCs # K/uL Sodium (136-145) mmol/L Potassium (3.5-5.1) mmol/L Chloride (98-107) mmol/L Carbon Dioxide (21.0-32.0) mmol/L BUN (7.0-18.0) mg/dL Creatinine (0.6-1.0) mg/dL Est Cr Clr Drug Dosing mL/min Estimated GFR (MDRD) ml/min Glucose (74-106) mg/dL Calcium (8.5-10.1) mg/dL Total Bilirubin (0.2-1.0) mg/dL AST (15-37) IU/L ALT (14-63) IU/L Alkaline Phosphatase (46-116) U/L Total Protein (6.4-8.2) g/dL Albumin (3.4-5.0) g/dL Globulin (2.0-3.5) g/dL Albumin/Globulin Ratio (1.3-2.8) HCG, Qual NEGATIVE (NEG) Urine Color Urine Appearance Urine pH (5.0-8.0) Ur Specific [place] (1.001-1.035) Urine Protein (NEGATIVE) mg/dL Urine Glucose (UA) (NEGATIVE) mg/dL Urine Ketones (NEGATIVE) mg/dL Urine Occult Blood (NEGATIVE) Urine Nitrite (NEGATIVE) Urine Bilirubin (NEGATIVE) Urine Urobilinogen (<2.0) EU/dL Ur Leukocyte Esterase (NEGATIVE) Urine RBC (0-2/HPF) Urine WBC (0-5/HPF) Ur Epithelial Cells (NONE-FEW) Amorphous Sediment (NEGATIVE) Urine Bacteria (NEGATIVE) Urine Mucus (NONE-MOD) Meds: Medications Generic Name Dose Route Start Last Admin Trade Name Brittnee PRN Reason Stop Dose Admin Sodium Chloride 10 ml 05/05/18 06:16 Saline Flush FLUSH ASDIRECTED PRN Keep Vein Open Sodium Chloride 2.5 ml 05/05/18 06:16 Saline Flush FLUSH ASDIRECTED PRN Keep Vein Open Discontinued Medications Generic Name Dose Route Start Last Admin Trade Name Fremichael PRN Reason Stop Dose Admin Diphenhydramine HCl 25 mg 05/05/18 06:56 05/05/18 06:57 Benadryl IVPUSH 05/05/18 06:57 25 mg ONETIME ONE Administration Diphenhydramine HCl Confirm 05/05/18 06:54 05/05/18 06:58 Benadryl Administered 05/05/18 06:55 Not Given Dose 50 mg .ROUTE .STK-MED ONE Fentanyl 50 mcg 05/05/18 06:18 05/05/18 06:39 Sublimaze IVPUSH 05/05/18 06:19 50 mcg ONETIME ONE Administration Sodium Chloride 1,000 mls @ 999 mls/hr 05/05/18 06:18 05/05/18 06:34 Normal Saline IV 05/05/18 07:18 999 mls/hr STAT ONE Administration Morphine Sulfate 4 mg 05/05/18 06:18 Morphine IVPUSH 05/05/18 06:19 ONETIME ONE Ondansetron HCl 4 mg 05/05/18 06:18 05/05/18 06:38 Zofran IVPUSH 05/05/18 06:19 4 mg ONETIME ONE Administration Departure - Departure Disposition: Home, Self-Care 01 Clinical Impression: Left ovarian cyst - Discharge Information Referrals: PCP,None [Primary Care Provider] - Forms: ED Department Discharge <Rachael Rosario - Last Filed: 05/05/18 08:31> ED HPI GENERAL MEDICAL PROBLEM - History of Present Illness INITIAL COMMENTS - FREE TEXT/NARRATIVE: Patient's labs are normal and urine is negative including test, ultrasound shows a 2.6 mildly complex left ovarian cyst without free fluid or torsion patient being discharged stable. She did have a mild reaction to fentanyl where she complained of itching and a lump in her throat. She was given Benadryl and her vital signs remained stable during this period Departure - Departure Time of Disposition: 08:30 Condition: Good
[2018-05-05] MEDS ORDERED: diphenhydrAMINE 50 MG/ML SDV ONE (06:54)
[2018-05-05] MEDS ORDERED: diphenhydrAMINE 50 MG/ML SDV IVPUSH ONE (06:56)
[2018-05-05 07:18] LABS: CHLORIDE,CL 109 mmol/L (98-107); SODIUM,NA 142 mmol/L (136-145)
[2018-05-05 09:02] VITALS: BP 103/59
--- NOTE | 2018-05-05 11:51 | US ---
EXAM DATE: 05/05/18 PATIENT'S AGE: 27 Patient: JESSICA DC Facility: [place], [place] Site . Site : [id number] Study: US Pelvis [id number]/[id number] 7:28:56 AM Ordering Physician: Nikhil Ordoñez Final Report: INDICATION: Left lower quadrant abdominal pelvic pain. Previous right oophorectomy. History of polycystic ovarian syndrome. TECHNIQUE: Transvaginal pelvic ultrasound. Color spectral Doppler waveform analysis of the left ovary was performed. FINDINGS: The uterus measures 7.6 cm in length and 3.6 cm in AP dimension. The endometrial stripe measures 4.4 mm. Surgically absent right ovary. The left ovary measures 4.3 x 3.2 x 2.6 cm. There is a complex cyst in the left ovary containing 1 or perhaps 2 subtle septations. Blood flow is documented in the left ovary both arterial and venous. No torsion. No free pelvic fluid. The left ovary itself measures up to 2.6 cm. Impression : Mildly complex left ovarian cyst measuring up to 2.6 cm likely physiologic in nature. No ovarian torsion. No free pelvic fluid. Dictated by Darnell Crouch MD @ May 05 2018 7:32AM (Electronic Signature) Report Signed by Proxy. HOLLY
== END 2018-05-05 09:03 | disposition home or self-care (01) ==
LOC: MW.ED 05:57
DX: N83.202 Unspecified ovarian cyst, left side (principal); J45.909 Unspecified asthma, uncomplicated; F41.9 Anxiety disorder, unspecified; F32.9 Major depressive disorder, single episode, unspecified; Z79.899 Other long term (current) drug therapy; Z88.2 Allergy status to sulfonamides; Z88.8 Allergy status to other drugs, medicaments and biological substances; Z88.6 Allergy status to analgesic agent
CPT/HCPCS: 36415; 76856; 80053; 81001; 84703; 85025; 99282; J1200; J2405; J3010; J7040; 99283